=== PATIENT | female | born 1945 | race Caucasian/White ===

== ENCOUNTER → 2019-11-19 10:16 | Outpatient (CLI) | payer MEDICARE, OTHER, SELFPAY ==
--- NOTE | ~2019-11-19 | XR_ITS ---
XR ankle RT 2V DATE: 11/19/2019 10:47 INDICATION: Right ankle and foot pain TECHNIQUE: AP and lateral views COMPARISON: 08/12/2017 right foot FINDINGS: Moderate plantar calcaneal enthesopathy without periostitis or erosive change. There is mil d distal Achilles tendon calcification. There is mild tibiotalar osteoarthritis. No fracture or dislocation of the ankle or disruption of the ankle mortise is detected. IMPRESSION: Moderate plantar calcaneal enthesopathy; mild distal Achilles tendon calcification Mild osteoarthritis at the tibiotalar joint Reviewed, dictated and finalized at location B. IMPRESSION: Moderate plantar calcaneal enthesopathy; mild distal Achilles tendo n calcification Mild osteoarthritis at the tibiotalar joint
--- NOTE | ~2019-11-19 | XR_ITS ---
XR foot RT 2V DATE: 11/19/2019 10:47 INDICATION: Right ankle and foot pain TECHNIQUE: AP and lateral views COMPARISON: None FINDINGS: There is mild osteoarthritis at the tibiotalar joint and first metatarsophalangeal joint. T here is mild osteoarthritic change of the tarsal joints. There is moderate plantar calcaneal enthesopathy and mild calcification of the distal Achilles tendon . No fracture or dislocation, periosteal reaction or bone destruction. IMPRESSION: Polyarticular osteoarthritis Plantar calcaneal enthesopathy and mild distal Achilles tendon calcification Reviewed, dictated and finalized at location B.
== END ==
PROVIDERS: PCP Family Medicine; Visit Provider Family Medicine
DX: M25.571 Pain in right ankle and joints of right foot (principal); M79.671 Pain in right foot; M19.071 Primary osteoarthritis, right ankle and foot; M77.31 Calcaneal spur, right foot
CPT/HCPCS: 73600; 73620

== ENCOUNTER 2019-11-26 10:35 | Outpatient (CLI) | payer MEDICARE, OTHER, SELFPAY ==
--- NOTE | ~2019-11-26 | US_ITS ---
EXAMINATION: US venous doppler LE RT DATE: 11/26/2019 11:21 INDICATION: Right lower limb swelling and pain TECHNIQUE: Saez scale images without and with compression and Doppler images of the right lower extre mity veins were obtained. COMPARISON: None FINDINGS: The right common femoral vein, profunda femoral vein, femoral vein, popliteal vein, peronea l trunk, posterior tibial veins, and greater saphenous vein are patent. Right lower limb edema is not ed. IMPRESSION: 1. Patent right lower extremity veins. No evidence of deep venous thrombosis. Reviewed, dictated and finalized at location B.
== END 2019-11-26 10:36 | disposition home or self-care (01) ==
LOC: ANHIMG 10:38
PROVIDERS: PCP Family Medicine; Visit Provider Family Medicine
DX: M79.661 Pain in right lower leg (principal)
CPT/HCPCS: 93971

== ENCOUNTER 2020-04-05 09:30 | Outpatient (RCR) | payer MEDICARE, OTHER, SELFPAY ==
--- NOTE | 2020-03-08 10:20 | PTOPEVAL ---
PHYSICAL THERAPY EVALUATION AND PLAN OF CARE 03-08-2020 Thank you for referring Sarah Giraldo to [facility].? She is scheduled to be seen for therapy? 2 x/week for 4 weeks. Please review, sign, date and return this plan of care ISABELLA. I agree with and certify that the following plan of care is medically necessary. Referring Physician Date Attending Provider: Raz Guevara MD *PT Outpatient Evaluation Document 03/08/20 09:11 TANIA (Rec: 03/08/20 10:20 TANIA [id number]) Outpatient Past Medical History Past Medical History Source of Past Medical History Patient Neurological History Hx Neurological Disorders No Significant History Cardiovascular History Hx Cardiac Disorders No Significant History Respiratory History Hx Respiratory Disorders No Significant History Gastrointestinal History Hx Cholecystectomy Yes Genitourinary History Hx Genitourinary Disorders No Significant History Musculoskeletal History Hx Back Pain Yes: chronic back pain Hx Orthopedic Surgery Yes: B rot cuff surgery; R trigger finder surgery; L elbow surgery;L hand surger Hx Other Musculoskeletal Disorders Yes: 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; B UE neuropathy Endocrine History Hx Diabetes Yes Hx Hypothyroidism Yes: on meds Hx Other Endocrine Disorders Yes: Hoshimoto HEENT History Hx HEENT Disorders No Significant History Integumentary History Hx Skin Disorders No Significant History Reproductive History Hx Hysterectomy Yes Other History Hx Cancer Yes: skin cancer pre cancer cells- arms,nose,neck Hx Other Medical Conditions Yes: [place]- new treatment for neuropathy L LE-inject& stim machine-helps Evaluation Information Problem Diagnosis R ankle, calf and leg swelling Onset October 2019 Subjective Information increase problems R LE when Query Text:As Reported By Patient/ getting out of car, tore Family muscle behind knee; had therapy for R knee- massage, exercises and now finished with knee; Diagnostic Tests X-Rays For This Problem Yes: ankle, knee negative Other Tests For This Problem Yes: US negative for DVT Prior Level of Function Activity Level (Last 3 Months) Occupation retired Activity of Daily Living Ability Independent Home Setting Home Type House,Multiple Levels Environmental Barriers Stairs, 2-4 Living Situation With Spouse Mobility Assistive Devices (Used Last 3 Walker, Whe
--- NOTE | 2020-03-27 11:43 | PCPTNOTE ---
Patient called & cancelled scheduled appointment this date due to not feeling well
--- NOTE | 2020-04-03 11:15 | PCPTNOTE ---
Had legal secretary call pt to see if Sarah could come in early due to a pt cancelation . Sarah stated she could not come in early, but would be here at 10:45. Pt no showed for appointment.
--- NOTE | 2020-04-05 16:16 | PTOPEVAL ---
PHYSICAL THERAPY DISCHARGE 04-05-2020 Refer to the clinical summary below for her status compared to the initial evaluation. The goals were achieved. She is discharged from PT at this time, and is to continue at home with her LE exercises, compression knee high garment, self manual lymph drainage. A home intermittent compression unit has been submitted to the insurance, through [employer] and awaiting authorization for her to receive for home use, to manage her chronic lymphedema. Thank you for referring Sarah Giraldo to [facility].? Please review, sign, date and return this plan of care ISABELLA. I agree with and certify that the following plan of care is medically necessary. Referring Physician Date Attending Provider: Raz Guevara MD *PT Outpatient Discharge Document 04/05/20 09:10 TANIA (Rec: 04/05/20 10:08 TANIA [id number]) Subjective Information Sarah reports: saw Dr Guevara Query Text:As Reported By Patient/ yesterday and he told her that Family she should be done with PT and to follow up with him next month if still has R ankle/ foot pain; R ankle is smaller than it has been in a long time; intermittent compression helped her legs--L LE neuropathy less after she has the pump; feels like she and her can handle the garment, self massage and care for her leg; agrees to discharge from PT; Pain Assessment Timing of Pain Assessment Timing of Pain Assessment Assessment Pain Scale Pain Scale Used Numeric (1 - 10) Self Report Pain Assessment Right Foot/Feet Reported Pain Level 5 Pain Description Sharp Pain Frequency Chronic Other Pain Description base of 3-4-5 toes to lateral- distal foot;tender to touch over 5 toe ext te Lowest Pain Intensity 0 Greatest Pain Intensity 9 Pain Score Pain Score 5: Self Report Interventions Used Interventions Used By Clinicians Education Lower Extremity Range of Motion General Lower Extremity Range of Motion Gross Lower Extremity Range of Motion sitting active B knee flexion Comments 75'; Modalities Intermittent Compression Pump Bilateral Lower Extremity Patient Position Sitting Intensity Setting 40 Query Text:(0 - 45 mmHg) Treatment Duration 10 Query Text:(0 - 60 Minutes) Reason For Treatment Edema Response to Treatment for Contributing Reduce Edema to Therapeutic Activity
== END 2020-04-06 08:41 | disposition home or self-care (01) ==
LOC: ANHPT 09:30
PROVIDERS: PCP Family Medicine; Visit Provider Orthopaedic Surgery
DX: M79.89 Other specified soft tissue disorders (principal)
CPT/HCPCS: 29581; 97016; 97140; 97161

== ENCOUNTER 2021-06-25 09:35 | Outpatient (CLI) | payer MEDICARE, OTHER, SELFPAY ==
[2021-06-25 10:01] LABS: Hematocrit 46.4 % (37.0-47.0); Mean Corpuscular HGB Conc 32.3 g/dl (32-36); Mean Corpuscular Hemoglobin 29.5 pg (26-34); Mean Corpuscular Volume 91.2 fl (80-100); Mean Platelet Volume 9.4 fl (7.4-10.4); Platelet Count Result 222 k/mm3 (150-375); Red Blood Count 5.09 M/mm3 (4.2-5.4); Red Cell Distribution Width 13.2 % (11.5-14.5)
[2021-06-25 10:17] LABS: Alanine Aminotransferase 20 U/L (4-35); Albumin Level 3.7 g/dL (3.5-5.1); Alkaline Phosphatase 103 U/L (38-126); Anion Gap 6 mmol/L (8-16); Aspartate Amino Transferase 28 U/L (14-36); Bilirubin,Total 0.4 mg/dL (0.2-1.3); Blood Urea Nitrogen 17 mg/dL (7-17); Calcium 8.7 mg/dL (8.4-10.2); Carbon Dioxide 30 mmol/L (22-30); Chloride 103 mmol/L (98-107); Estimated Glomerular Filt Rate 54; Glucose 161 mg/dL (65-110); Potassium 3.9 mmol/L (3.4-5.0); Sodium 139 mmol/L (137-145)
[2021-06-25 10:40] LABS: Hemoglobin A1C 9.9 % (<5.7)
[2021-06-25 10:51] LABS: Free T4 Free Thyroxine 2.02 ng/mL (0.78-2.19)
== END 2021-06-25 09:36 | disposition home or self-care (01) ==
PROVIDERS: PCP Family Medicine; Visit Provider Physician Assistant
DX: D64.9 Anemia, unspecified (principal); E11.9 Type 2 diabetes mellitus without complications; I10 Essential (primary) hypertension; Z13.1 Encounter for screening for diabetes mellitus; E03.9 Hypothyroidism, unspecified; R53.83 Other fatigue
CPT/HCPCS: 36415; 80053; 83036; 84439; 84443; 85027

== ENCOUNTER 2021-07-13 14:04 | Outpatient (CLI) | payer MEDICARE, OTHER, SELFPAY ==
--- NOTE | ~2021-07-13 | US_ITS ---
EXAMINATION: US art doppler w press LE BI DATE: 07/13/2021 15:21 INDICATION: Peripheral vascular disease with foot ulcer TECHNIQUE: Segmental pressures and plethysmographic and Doppler waveforms of the brachial and lower e xtremity arteries were obtained. COMPARISON: None. FINDINGS: Right and left brachial artery pressures of 89 mm Hg and 132 mm Hg, respectively, are discordant (nor mal difference <= 30 mmHg). The right and left high-thigh pressure indices were unable to be obtained due to inability to tolerate pressure measurements throughout the right thigh and in the left thigh and [id number] popliteal artery. The right ankle-brachial index (YANNA) is 1.14 (normal >= 0.9-1). The right great toe-brachial index (T BI) is 0.94 (normal >= 0.6-0.8). The right lower extremity segmental pressure gradients in the right calf are normal (normal gradients <= 20-30 mmHg between adjacent levels on the same leg or the same l evels on the two legs). Arterial waveforms are biphasic with brisk systolic upstrokes throughout the arteries of the right lower limb. The left YANNA is 1.23. The left TBI is 0.70. The left lower extremity segmental pressure in the left c shelter gradients are normal. Arterial waveforms are biphasic with brisk systolic upstrokes throughout th e arteries of the left lower limb. IMPRESSION: 1. Normal YANNA's and TBI's bilaterally. No significant occlusive disease. 2. Discordant brachial artery pressures suggesting hemodynamically significant stenosis proximal to t he right brachial artery. Consider CT angiogram of the arteries arising from the aortic arch. Reviewed, dictated and finalized at location A. IMPRESSION: 1. Normal YANNA's and TBI's bilaterally. No significant occlusive disease. 2. Discordant brachial artery pressures suggesting hemodynamically significant stenosis proximal to the right brachial artery. Consider CT angiogram of the ar teries arising from the aortic arch.
== END 2021-07-13 14:05 | disposition home or self-care (01) ==
LOC: ANHIMG 14:06
PROVIDERS: PCP Family Medicine; Visit Provider Podiatrist Foot & Ankle Surgery
DX: E11.621 Type 2 diabetes mellitus with foot ulcer (principal); I73.9 Peripheral vascular disease, unspecified
CPT/HCPCS: 93923

== ENCOUNTER 2022-01-01 08:55 | Outpatient (CLI) | payer MEDICARE, OTHER, SELFPAY ==
[2022-01-01 10:05] LABS: Alanine Aminotransferase 17 U/L (6-35); Albumin Level 3.8 g/dL (3.5-5.1); Alkaline Phosphatase 92 U/L (38-126); Anion Gap 14 mmol/L (8-16); Aspartate Amino Transferase 25 U/L (14-36); Bilirubin,Total 0.4 mg/dL (0.2-1.3); Blood Urea Nitrogen 16 mg/dL (7-17); Calcium 8.8 mg/dL (8.4-10.2); Carbon Dioxide 29 mmol/L (22-30); Chloride 96 mmol/L (98-107); Cholesterol 170 mg/dL (0-200); Estimated Glomerular Filt Rate > 60; Glucose 166 mg/dL (65-110); HDL Direct 34 mg/dL; Potassium 3.9 mmol/L (3.4-5.0); Sodium 139 mmol/L (137-145); Triglycerides 147 mg/dL (<150)
[2022-01-01 10:16] LABS: LDL Cholesterol Direct 99 mg/dL
[2022-01-01 10:26] LABS: Hemoglobin A1C 7.3 % (<5.7)
[2022-01-01 11:08] LABS: Vitamin D 25 Hydroxy 39.5 ng/mL
[2022-01-01 11:52] LABS: Free T4 Free Thyroxine Reflex 1.89 ng/dL (0.78-2.19)
[2022-01-01 12:50] LABS: Total Triiodothyronine (T3) 1.15 NG/ML (0.97-1.69)
== END 2022-01-01 08:56 | disposition home or self-care (01) ==
LOC: ANHLAB 09:08
PROVIDERS: PCP Family Medicine; Visit Provider Family Medicine
DX: E55.9 Vitamin D deficiency, unspecified (principal); E78.2 Mixed hyperlipidemia; E03.9 Hypothyroidism, unspecified; E11.9 Type 2 diabetes mellitus without complications
CPT/HCPCS: 36415; 80053; 80061; 82306; 83036; 84439; 84443; 84480

== ENCOUNTER 2022-12-16 14:29 | Outpatient (CLI) | payer MEDICARE, OTHER, SELFPAY ==
--- NOTE | ~2022-12-16 | US_ITS ---
EXAMINATION: US venous doppler [facility] DATE: 12/16/2022 15:08 INDICATION: Lower limb swelling TECHNIQUE: Grayscale ultrasound images without and with compression and Doppler ultrasound images of the bilateral lower extremity veins were obtained. COMPARISON: None. FINDINGS: The visualized portions of right common femoral vein, profunda (deep) femoral vein, femoral vein, pop liteal vein, posterior tibial veins, gastrocnemius vein and greater saphenous vein outflow are patent . The visualized portions of left common femoral vein, profunda femoral vein, femoral vein, popliteal v ein, gastrocnemius vein and greater saphenous vein outflow are patent. IMPRESSION: 1. No deep venous thrombosis in either lower limb. Reviewed, dictated and finalized at location A.
== END 2022-12-16 14:30 | disposition home or self-care (01) ==
LOC: ANHIMG 14:33
PROVIDERS: PCP Family Medicine; Visit Provider Family Medicine
DX: R60.0 Localized edema (principal)
CPT/HCPCS: 93970

== ENCOUNTER 2023-01-06 10:21 | Outpatient (CLI) | payer MEDICARE, OTHER, SELFPAY ==
[2023-01-06 11:55] LABS: Basophils Absolute Auto 0.1 K/mm3 (0.0-0.1); Basophils Percent Auto 1.5 % (0.2-1.2); Eosinophils Absolute Auto 0.1 K/mm3 (0-0.3); Eosinophils Percent Auto 2.4 % (0-4.4); Hematocrit 46.3 % (37.0-47.0); Hemoglobin 14.8 g/dL (12.0-15.0); Immature Granulocyte Absolute 0.02 K/mm3 (0.00-0.031); Immature Granulocyte Percent A 0.3 % (0-0.5); Lymphocytes Percent Auto 41.2 % (18.3-44.2); Mean Corpuscular Hemoglobin 29.1 pg (26-34); Mean Corpuscular Volume 91.1 fl (80-100); Mean Platelet Volume 10.1 fl (7.4-10.4); Monocytes Absolute Auto 0.4 K/mm3 (0.1-0.6); Monocytes Percent Auto 7.2 % (2.6-8.5); Neutrophils Absolute Auto 2.8 K/mm3 (1.3-6.7); Neutrophils Percent Auto 47.4 % (45.5-73.1); Platelet Count Result 208 k/mm3 (150-375); Red Blood Count 5.08 M/mm3 (4.2-5.4); Red Cell Distribution Width 13.5 % (11.5-14.5); White Blood Count 5.8 K/mm3 (4.5-10.0)
[2023-01-06 12:03] LABS: Appearance Urine Clear (Clear); Bacteria Urine 2+ /hpf; Bilirubin Urine Negative (Negative); Blood Urine Negative (Negative); Color Urine Yellow (Yellow); Glucose Urine UA Negative (Negative); Ketones Urine Negative (Negative); Leukocyte Esterase Ur Trace LEU/UL (Negative); Nitrate Urine Negative (Negative); Non Pathogenic Casts 0-2; Protein Urine Negative (Negative); RBC Urine 0-2 /hpf (0-2); Specific Grav Ur 1.023 (1.001-1.035); Squamous Epithelial Cell Urine Moderate /hpf (Few); pH Urine 6.5 (5.0-9.0)
[2023-01-06 12:09] LABS: Add Urine Microscopic? YES
[2023-01-06 12:13] LABS: Alanine Aminotransferase 21 U/L (6-35); Albumin Level 3.8 g/dL (3.5-5.1); Alkaline Phosphatase 104 U/L (38-126); Anion Gap 6 mmol/L (8-16); Aspartate Amino Transferase 31 U/L (14-36); Bilirubin,Total 0.5 mg/dL (0.2-1.3); Blood Urea Nitrogen 20 mg/dL (7-17); Calcium 9.4 mg/dL (8.4-10.2); Carbon Dioxide 33 mmol/L (22-30); Chloride 98 mmol/L (98-107); Estimated Glomerular Filt Rate 60; Glucose 186 mg/dL (65-110); Sodium 137 mmol/L (137-145)
[2023-01-06 12:22] LABS: NT Pro B Type Natriuretic Pept 90 pg/mL (19.9-100)
[2023-01-06 12:45] LABS: Thyroid Stimulating Hormone Reflex 0.209 uIU/mL (0.465-4.68)
[2023-01-06 14:16] LABS: Free T4 Free Thyroxine Reflex 2.82 ng/dL (0.78-2.19)
== END 2023-01-06 10:22 | disposition home or self-care (01) ==
PROVIDERS: PCP Family Medicine; Visit Provider Family Medicine
DX: N18.9 Chronic kidney disease, unspecified (principal); E11.9 Type 2 diabetes mellitus without complications; E03.9 Hypothyroidism, unspecified; R53.83 Other fatigue; R60.9 Edema, unspecified; I50.9 Heart failure, unspecified
CPT/HCPCS: 36415; 80053; 81001; 83880; 84439; 84443; 85025; 87077; 87086; 87186

== ENCOUNTER 2023-01-14 07:12 | Outpatient (RCR) | payer MEDICARE, OTHER, SELFPAY ==
[2022-12-31 10:25] VITALS: BMI 47.8
== END 2023-01-30 13:29 | disposition home or self-care (01) ==
LOC: ANHWOC 07:12
PROVIDERS: PCP Family Medicine; Visit Provider Family Medicine
DX: I83.009 Varicose veins of unspecified lower extremity with ulcer of unspecified site (principal); L97.909 Non-pressure chronic ulcer of unspecified part of unspecified lower leg with unspecified severity; E08.40 Diabetes mellitus due to underlying condition with diabetic neuropathy, unspecified
CPT/HCPCS: 99212; 99213; G0463

== ENCOUNTER 2023-01-21 07:19 | Outpatient (CLI) | payer MEDICARE, OTHER, SELFPAY ==
--- NOTE | 2023-01-21 08:00 | ECHO_ITS ---
Patient Info Name: Sarah Giraldo Age: 77 years : 1945 Gender: Female Ht: 60 in Wt: 247 lbs BSA: 2.25 m2 HR: 61 bpm BP: 176 / 90 mmHg Technical Quality: Fair Exam Date: 01/21/2023 8:11 AM Exam Location: [facility] Patient Status: Outpatient Admit Date: 01/21/2023 Staff Ordering Physician: Jocy Moon MD [employer] Shift Manager: Irma Fink RDCS Attending Provider: Jocy Moon MD Referring Physician: Red LUGO; Exam Type: CA echo doppler color flow Study Info Indications R06.00 - Dyspnea, unspecified Complete two-dimensional, color flow and Doppler transthoracic echocardiogram is performed. Summary 1. Complete two-dimensional, color flow and Doppler transthoracic echocardiogram is performed. 2. Left ventricular chamber dimension is normal. 3. Left ventricular systolic function is normal, estimated at 60-65%. 4. There is mild concentric increased left ventricular wall thickness. 5. The left ventricular diastolic function is grade I diastolic dysfunction. 6. E/e' 8 is minimally elevated. 7. Left atrial chamber dimension is mildly enlarged. 8. There is mild aortic valve sclerosis. 9. No pulmonary hypertension, estimated pulmonary arterial systolic pressure is 26 mmHg. Left Ventricle E/e' 8 is minimally elevated. Left ventricular chamber dimension is normal. Left ventricular systolic function is normal, estimated at 60-65%. There is mild concentric increased left ventricular wall thickness. The left ventricular diastolic function is grade I diastolic dysfunction. Right Ventricle Right ventricular systolic function is normal and with normal TAPSE 2.5 cm. Right ventricular chamber dimension is normal. Left Atria Left atrial chamber dimension is mildly enlarged. Right Atria Right atrial chamber dimension is normal. Aortic Valve The aortic valve is trileaflet. There is mild aortic valve sclerosis. There is no aortic valve stenosis. There is no aortic valve regurgitation. Pulmonic Valve There is no pulmonic regurgitation. Mitral Valve There is no mitral valve stenosis. There is no mitral valve regurgitation. Tricuspid Valve There is no tricuspid valve regurgitation. No pulmonary hypertension, estimated pulmonary arterial systolic pressure is 26 mmHg. Pericardium/Pleural There is no pericardial effusion. Inferior Vena Cava Normal inferior vena cava with >50% collapse upon inspiration consistent with normal right atrial pressure, 5 mmHg. Aorta The aortic root size at the sinus of Valsalva is normal. Left Ventricular Outflow Tract Name Value Normal LVOT 2D LVOT Diameter 1.9 cm LVOT Doppler LVOT Peak Gradient 4 mmHg LVOT Mean Gradient 2 mmHg LVOT VTI 23 cm LVOT VTI/AV VTI Ratio 0.8 LVOT Stroke Volume 64 ml LVOT CO 4.1 l/min LVOT CI 1.8 l/min/m2 Pulmonic Valve Name Value Normal R
== END 2023-01-21 07:20 | disposition home or self-care (01) ==
LOC: ANHCARD 07:19
PROVIDERS: PCP Family Medicine; Visit Provider Family Medicine
DX: R06.00 Dyspnea, unspecified (principal); R60.9 Edema, unspecified; I51.7 Cardiomegaly; R93.1 Abnormal findings on diagnostic imaging of heart and coronary circulation; I35.8 Other nonrheumatic aortic valve disorders
CPT/HCPCS: 93306

== ENCOUNTER 2023-06-10 07:35 | Outpatient (RCR) | payer MEDICARE, OTHER, SELFPAY ==
[2023-05-09 10:00] VITALS: BMI 48.9
== END 2023-08-07 23:59 | disposition home or self-care (01) ==
LOC: ANHWOC 07:35
PROVIDERS: PCP Family Medicine; Visit Provider Family Medicine
DX: L97.909 Non-pressure chronic ulcer of unspecified part of unspecified lower leg with unspecified severity (principal)
CPT/HCPCS: 29581; 99213; A9270; G0463

== ENCOUNTER 2023-06-21 08:38 | Outpatient (CLI) | payer MEDICARE, OTHER, SELFPAY ==
[2023-06-21 09:02] LABS: Basophils Absolute Auto 0.1 K/mm3 (0.0-0.1); Basophils Percent Auto 1.3 % (0.2-1.2); Eosinophils Absolute Auto 0.2 K/mm3 (0-0.3); Hematocrit 43.5 % (37.0-47.0); Immature Granulocyte Absolute 0.02 K/mm3 (0.00-0.031); Immature Granulocyte Percent A 0.3 % (0-0.5); Lymphocytes Absolute Auto 1.68 K/mm3 (0.9-3.2); Lymphocytes Percent Auto 27.9 % (18.3-44.2); Mean Corpuscular HGB Conc 32.2 g/dl (32-36); Mean Corpuscular Hemoglobin 28.9 pg (26-34); Mean Corpuscular Volume 89.7 fl (80-100); Mean Platelet Volume 9.4 fl (7.4-10.4); Monocytes Absolute Auto 0.6 K/mm3 (0.1-0.6); Monocytes Percent Auto 9.5 % (2.6-8.5); Neutrophils Absolute Auto 3.5 K/mm3 (1.3-6.7); Platelet Count Result 214 k/mm3 (150-375); Red Blood Count 4.85 M/mm3 (4.2-5.4); Red Cell Distribution Width 13.2 % (11.5-14.5)
[2023-06-21 09:56] LABS: Alanine Aminotransferase 14 U/L (6-35); Albumin Level 3.4 g/dL (3.5-5.1); Alkaline Phosphatase 100 U/L (38-126); Anion Gap 4 mmol/L (8-16); Aspartate Amino Transferase 24 U/L (14-36); Bilirubin,Total 0.5 mg/dL (0.2-1.3); Blood Urea Nitrogen 15 mg/dL (7-17); Calcium 9.2 mg/dL (8.4-10.2); Carbon Dioxide 29 mmol/L (22-30); Chloride 101 mmol/L (98-107); Cholesterol 153 mg/dL (0-200); Estimated Glomerular Filt Rate > 60; Glucose 159 mg/dL (65-110); HDL Direct 39 mg/dL; Potassium 3.9 mmol/L (3.4-5.0); Sodium 134 mmol/L (137-145); Triglycerides 124 mg/dL (<150)
[2023-06-21 10:12] LABS: LDL Cholesterol Direct 89 mg/dL
[2023-06-21 10:43] LABS: Vitamin D 25 Hydroxy 41.1 ng/mL
== END 2023-06-21 08:39 | disposition home or self-care (01) ==
LOC: ANHLAB 08:40
PROVIDERS: PCP Family Medicine; Visit Provider Physician Assistant
DX: E55.9 Vitamin D deficiency, unspecified (principal); R53.83 Other fatigue; E11.9 Type 2 diabetes mellitus without complications; E53.8 Deficiency of other specified B group vitamins; E78.2 Mixed hyperlipidemia
CPT/HCPCS: 36415; 80053; 80061; 82306; 82607; 85025

== ENCOUNTER 2023-10-28 13:02 | Outpatient (CLI) | payer MEDICARE, OTHER, SELFPAY ==
--- NOTE | 2023-10-28 14:45 | NEURO_ITS ---
Impression: # Insulin dependent diabetic complains of increasing numbness of hands. # Borderline neuropathy. 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 # Normal needle/EMG exam. Nerve Conduction Studies Anti Sensory Summary Table Stim Site NR Peak (ms) P-T Amp (?V) Site1 Site2 Delta-P (ms) Dist (cm) Efrain (m/s) Left Median Anti Sensory (2-3nd Digit) Wrist 4.8 4.0 Wrist 2-3nd Digit 4.8 14.0 29 Wrist 5.2 5.3 Wrist 2-3nd Digit 4.8 14.0 29 Right Median Anti Sensory (2-3nd Digit) Wrist 3.8 9.5 Wrist 2-3nd Digit 3.8 14.0 37 Wrist 4.2 19.2 Wrist 2-3nd Digit 3.8 14.0 37 Left Radial Anti Sensory (Base 1st Digit) Wrist 2.0 12.4 Wrist Base 1st Digit 2.0 0.0 Right Radial Anti Sensory (Base 1st Digit) Wrist 2.7 10.2 Wrist Base 1st Digit 2.7 0.0 Left Ulnar Anti Sensory (5th Digit) Wrist 3.3 6.3 Wrist 5th Digit 3.3 14.0 42 Right Ulnar Anti Sensory (5th Digit) Wrist 3.2 29.0 Wrist 5th Digit 3.2 14.0 44 Motor Summary Table Stim Site NR Onset (ms) O-P Amp (mV) Site1 Site2 Delta-0 (ms) Dist (cm) Efrain (m/s) Left Median Motor (Abd Poll Brev) Wrist 4.4 1.3 Elbow Wrist 5.5 26.0 47 Elbow 9.9 1.3 Right Median Motor (Abd Poll Brev) Wrist 4.6 0.7 Elbow Wrist 6.3 28.0 44 Elbow 10.9 1.3 Left Ulnar Motor (Abd Dig Minimi) Wrist 3.2 7.4 A Elbow Wrist 7.2 27.0 38 A Elbow 10.4 2.6 B Elbow Wrist 4.8 22.0 46 B Elbow 8.0 3.2 Right Ulnar Motor (Abd Dig Minimi) Wrist 3.4 5.8 A Elbow Wrist 5.6 27.0 48 A Elbow 9.0 3.7 F Wave Studies NR F-Lat (ms) L-R F-Lat (ms) Left Median (Mrkrs) (Abd Poll Brev) 28.93 1.11 Right Median (Mrkrs) (Abd Poll Brev) 30.04 1.11 Left Ulnar (Mrkrs) (Abd Dig Min) 30.81 0.18 Right Ulnar (Mrkrs) (Abd Dig Min) 30.63 0.18 EMG Side Muscle Nerve Root Ins Act Fibs Amp Dur Recrt Comment Right 1stDorInt Ulnar C8-T1 Nml Nml Nml Nml Nml Right Ext Indicis Radial (Post Int) C7-8 Nml Nml Nml Nml Nml Right Ext Digitorum Radial (Post Int) C7-8 Nml Nml Nml Nml Nml Right BrachioRad Radial C5-6 Nml Nml Nml Nml Nml Right PronatorTeres Median C6-7 Nml Nml Nml Nml Nml Right Abd Poll Brev Median C8-T1 Nml Nml Nml Nml Nml Right ABD Dig Min Ulnar C8-T1 Nml Nml Nml Nml Nml Left 1stDorInt Ulnar C8-T1 Nml Nml Nml Nml Nml Left Ext Indicis Radial (Post Int) C7-8 Nml Nml Nml Nml Nml Left Ext Digitorum Radial (Post Int) C7-8 Nml Nml Nml Nml Nml Left BrachioRad Radial C5-6 Nml Nml Nml Nml Nml Left PronatorTeres Median C6-7 Nml Nml Nml Nml Nml Left Abd Poll Brev Median C8-T1 Nml Nml Nml Nml Nml Left ABD Dig Min Ulnar C8-T1 Nml Nml Nml Nml Nml MTDD
== END 2023-10-28 13:03 | disposition home or self-care (01) ==
LOC: ANHNEURO 13:02
PROVIDERS: PCP Family Medicine; Visit Provider Plastic Surgery
DX: G56.03 Carpal tunnel syndrome, bilateral upper limbs (principal); E11.9 Type 2 diabetes mellitus without complications; Z79.4 Long term (current) use of insulin
CPT/HCPCS: 95886; 95911

== ENCOUNTER 2024-01-19 09:30 | Outpatient (CLI) | payer MEDICARE, OTHER, SELFPAY ==
[2024-01-19 09:53] LABS: Basophils Absolute Auto 0.1 K/mm3 (0.0-0.1); Basophils Percent Auto 1.2 % (0.2-1.2); Eosinophils Absolute Auto 0.3 K/mm3 (0-0.3); Eosinophils Percent Auto 4.8 % (0-4.4); Hematocrit 45.7 % (37.0-47.0); Hemoglobin 14.8 g/dL (12.0-15.0); Immature Granulocyte Absolute 0.03 K/mm3 (0.00-0.031); Immature Granulocyte Percent A 0.5 % (0-0.5); Lymphocytes Absolute Auto 2.35 K/mm3 (0.9-3.2); Lymphocytes Percent Auto 36.3 % (18.3-44.2); Mean Corpuscular HGB Conc 32.4 g/dl (32-36); Mean Corpuscular Hemoglobin 29.2 pg (26-34); Mean Corpuscular Volume 90.3 fl (80-100); Mean Platelet Volume 9.2 fl (7.4-10.4); Monocytes Absolute Auto 0.6 K/mm3 (0.1-0.6); Monocytes Percent Auto 9.9 % (2.6-8.5); Neutrophils Absolute Auto 3.1 K/mm3 (1.3-6.7); Neutrophils Percent Auto 47.3 % (45.5-73.1); Platelet Count Result 202 k/mm3 (150-375); Red Blood Count 5.06 M/mm3 (4.2-5.4); Red Cell Distribution Width 13.9 % (11.5-14.5); White Blood Count 6.5 K/mm3 (4.5-10.0)
[2024-01-19 10:05] LABS: Alanine Aminotransferase 14 U/L (6-35); Albumin Level 3.9 g/dL (3.5-5.1); Alkaline Phosphatase 99 U/L (38-126); Anion Gap 4 mmol/L (4-12); Aspartate Amino Transferase 26 U/L (14-36); Bilirubin,Total 0.5 mg/dL (0.2-1.3); Blood Urea Nitrogen 15 mg/dL (7-17); Calcium 9.1 mg/dL (8.4-10.2); Carbon Dioxide 33 mmol/L (22-30); Chloride 99 mmol/L (98-107); Cholesterol 181 mg/dL (0-200); Estimated Glomerular Filt Rate > 60; Glucose 132 mg/dL (65-110); HDL Direct 49 mg/dL; Potassium 4.2 mmol/L (3.4-5.0); Sodium 136 mmol/L (137-145); Triglycerides 122 mg/dL (<150)
[2024-01-19 10:15] LABS: LDL Cholesterol Direct 98 mg/dL
[2024-01-19 10:21] LABS: Hemoglobin A1C 7.9 % (<5.7)
[2024-01-19 10:23] LABS: Iron 139 ug/dL (37-170)
[2024-01-19 10:33] LABS: Percent Iron Saturation 36 % (20-50)
[2024-01-19 10:55] LABS: Thyroid Stimulating Hormone Reflex < 0.015 uIU/mL (0.465-4.68)
[2024-01-19 16:35] LABS: Free T4 Free Thyroxine Reflex 1.79 ng/dL (0.78-2.19)
[2024-01-19 17:30] LABS: Total Triiodothyronine (T3) 1.19 NG/ML (0.97-1.69)
== END 2024-01-19 09:31 | disposition home or self-care (01) ==
PROVIDERS: PCP Family Medicine; Visit Provider Family Medicine
DX: E53.8 Deficiency of other specified B group vitamins (principal); I12.9 Hypertensive chronic kidney disease with stage 1 through stage 4 chronic kidney disease, or unspecified chronic kidney disease; E08.40 Diabetes mellitus due to underlying condition with diabetic neuropathy, unspecified; N18.30 Chronic kidney disease, stage 3 unspecified; E03.9 Hypothyroidism, unspecified; R53.83 Other fatigue; E61.1 Iron deficiency
CPT/HCPCS: 36415; 80053; 80061; 82607; 82728; 83036; 83540; 83550; 84439; 84443; 84480; 85025

== ENCOUNTER 2024-09-28 11:30 | Outpatient (CLI) | payer MEDICARE, OTHER, SELFPAY ==
--- OUTSIDE RECORDS SUMMARY | 2024-09-28 11:39 | XMS_ITS | Continuity of Care Document ---
Author Name [facility] Organization [facility] Care Team Providers Care Platen Grinder Name Role Phone [facility] Unavailable Unavailable Problems Combined list of problems from Department of Defense and Veterans Affairs facilities. It does not include entries that were removed or entered in error. Problem Status Onset Date Problem Type Date of Resolution Comments Source Vaccines Prophylactic Need Against Influenza Inactive Condition [facility] Medications Combined list of outpatient medications from Department of Defense and Veterans [facility] facilities.Medications provided include 1) outpatient medications from the last 15 months, and 2) patient-reported medications. Medication Details Route Status Patient Instructions Prescription Expires Prescription Number Last Dispense Date Ordering Provider Order Date Order Qty Source INSULIN ASPART PROT MIX 70-30 (insulin aspart protamine human/insul in aspart), 70-30/ML, INSULN PEN, SUBCUT, TRACEY NORDISK, 3 ml SYRINGE Cancele d [id number] : 2023 0 Pharmac y Data Transac tion Service Facilit y LEVOTHYROXI NE SODIUM (levothyrox ine sodium), 175 MCG, TABLET, ORAL, [employer], 90 ea. BOTTLE Cancele d [id number] : 2023 0 Pharmac y Data Transac tion Service Facilit y LEVOTHYROXI NE SODIUM (levothyrox ine sodium), 175 MCG, TABLET, ORAL, [employer], 90 ea. BOTTLE Active [id number] 4 2023 90 Pharmac y Data Transac tion Service Facilit y MOUNJARO (tirzepatid e), 2.5 MG/0.5, PEN INJCTR, SUBCUT, [employer] .5 ml SYRINGE Active [id number] 4 2023 6 Pharmac y Data Transac tion Service Facilit y NOVOLOG MIX 70-30 (INSULN ASP PRT/INSULIN ASPART), 70-30 U/ML, INSULN PEN, SUB-Q, TRACEY NORDISK, 3 ml SYRINGE Active [id number] 4 2023 90 Pharmac y Data Transac tion Service Facilit y POTASSIUM CHLORIDE (potassium chloride), 10 MEQ, CAPSULE ER, ORAL, [employer], 100 ea. BOTTLE Active [id number] 4 2023 38 Pharmac y Data Transac tion Service Facilit y PREGABALIN (pregabalin ), 75 MG, CAPSULE, ORAL, [employer], 90 ea. BOTTLE Active [id number] 4 2023 270 Pharmac y Data Transac tion Service Facilit y PREGABALIN (pregabalin ), 75 MG, CAPSULE, ORAL, [employer], 90 ea. BOTTLE Active [id number] 4 2023 270 Pharmac y Data Transac tion Service Facilit y SHINGRIX (varicella- zoster virus glycoprotei n E,rec/AS01B adjuvant/PF ), 50 MCG/0.5, KIT, INTRAMUSC, Refinder by [facility], 1 ea. KIT Active [id number] 4 2023 1 Pharmac y Data Transac tion Service Facilit y SURE COMFORT PEN NEEDLE (pen needle, diabetic), 31 GX5/16, DIS NEEDLE, MISCELL, [facility], 100 ea. BOX Active [id number] 10/20/19 2 4 2023 400 Pharmac y Data Transac tion Service Facilit y TRAMADOL HCL (tramadol HCl), 50 MG, TABLET, ORAL, [employer] 500 ea. BOTTLE Active [id number] 4 2023 360 Pharmac y Data Transac tion Service Facilit y TRIAMCINOLO NE ACETONIDE (triamcinol one acetonide), 0.1 %, CREAM (G), TOPICAL, [employer] 454 g JAR Cancele d [id number] : 2023 0 Pharmac y Data Transac tion Service Facilit y TRIAMCINOLO NE ACETONIDE (TRIAMCINOL ONE ACETONIDE), 0.1%, CREAM(GM), TOPICAL, [employer] 15 g TUBE Active [id number] 4 2023 180 Pharmac y Data Transac tion Service Facilit y TRULICITY (dulaglutid e), 4.5 MG/0.5, PEN INJCTR, SUBCUT, [employer] .5 ml SYRINGE Cancele d [id number] : 2023 0 Pharmac y Data Transac tion Service Facilit y TRULICITY (dulaglutid e), 4.5 MG/0.5, PEN INJCTR, SUBCUT, [employer] .5 ml SYRINGE Cancele d [id number] : 2023 0 Pharmac y Data Transac tion Service Facilit y VITAMIN D2 (ergocalcif theo (vitamin D2)), 1250 MCG, CAPSULE, ORAL, [employer], 100 ea. BOTTLE Active [id number] 4 2023 12 Pharmac y Data Transac tion Service Facilit y Allergies, Adverse Reactions, Alerts Combined list of allergies from Department of Defense and Veterans Affairs facilities. It does not include entries that were removed or entered in error. Substance Category Reaction Severity Reaction type Status Date Reported Comments Source No Known Allergies Drug allergy (disorder) active 8 [facility] Immunizations Combined list of available immunizations from the Department of Defense and Veterans Affairs facilities. Immunization Series Date Given Administered By Site Reaction Lot Number CVX Code Drug Registered Associate Status Comments Source zoster recombinant 2023 () Not Given zoster recombina nt DoD COVID-19, mRNA, LNP-S, PF, 100 mcg or 50 mcg dose 2021 OC, [employer] (MOD) Not Given COVID-19, mRNA, LNP-S, PF, 100 mcg or 50 mcg dose DoD COVID-19, mRNA, LNP-S, PF, 100 mcg or 50 mcg dose 2020 ANGELA, [employer] (MOD) Not Given COVID-19, mRNA, LNP-S, PF, 100 mcg or 50 mcg dose DoD influenza, high-dose, quadrivalent 2020 OC, () Not Given influenza , high-dose , quadrival ent DoD influenza, high-dose, quadrivalent 2019 ALUL, () Not Given influenza , high-dose , quadrival ent DoD influenza virus vaccine, split virus (incl. purified surface antigen)-reti red CODE 1 2002 Unknown, Provider [id number] Sanofi Pasteur ([facility]MC) complet ed influenza virus vaccine, split virus (incl. purified surface antigen)- retired CODE DoD Encounters Combined list of: 1) Encounters from Department of Veterans Affairs facilities going backup to the last 18 months, not all VA inpatient encounters are included; 2) Encounters from the Department of Defense facilities going backup to 280 months. Location Location Details Encounter Type Encounter Number Reason For Visit Attending Provider ADM Date DC Date Status Disposition Source [facility] h(Immuniz ation [place]) OUTPATIENT [id number] ROSETTA IBRAHIM I 02/25 Released w/o Limitations [facility] ut(Imm unizati on [place]) Procedures Combined list of: 1) Procedures from Department of Veterans Affairs facilities going back up to thelast 18 months, not all [place] non-surgical procedures are included; 2) All procedures from the Department of Defense facilities. Procedure Procedure Type Code Date Perfomer Comments Qamar e IMMUNIZATION ADMINISTRATION (INCLUDES PERCUTANEOUS, INTRADERMAL, SUBCUTANEOUS, OR INTRAMUSCULAR INJECTIONS); 1 VACCINE (SINGLE OR COMBINATION VACCINE/TOXOID) 02/25/2003 DoD Immunization Administration One Vaccine Immunization Administration One Vaccine [id number] 02/25/2003 ROSETTA BENOIT I [facility] Influenza Split Virus Vaccine Age 3+ Years Intramuscular 02/25/2003 ROSETTA BENOIT I [facility] Social History Combined list of available smoking, tobacco, and other social history from Department of Defense and Veterans Affairs facilities. Social History Type Response Date Comment Sourc e This section is an empty social history section. [facility]
--- OUTSIDE RECORDS SUMMARY | 2024-09-28 11:39 | XMS_ITS | Clinical Summary ---
Author Organization [facility] [address] Address [address] [place] [address] Care Team Providers Care Professor Of Visual Arts Name Role Phone Jocy Moon MD Primary Care Provider [phone] Allergies Active Allergy Reactions Criticality Noted Date Comments Tor Inhibitors Unknown Low 02/27/2015 Makes her sick, Makes her sick, Makes her sick Codeine Medications ALPRAZolam (XANAX) 0.25 mg tablet Take 1 tablet (0.25 mg total) by mouth as needed 0 Active Lumigan 0.01 % ophthalmic drops 2 Active cyanocobalamin (Vitamin B-12) 1,000 mcg/mL injection 2 Active ergocalciferol (VITAMIN D) 50,000 unit capsule 2 Active metoprolol XL (TOPROL-XL) 100 mg 24 hr tablet [address] (PROTONIX) 40 mg EC tablet 2 Active Sure Comfort Pen Needle 31 gauge x 5/16 needle 2 Active pregabalin (LYRICA) 75 mg capsule 2 Active Monoject Syringe 3 mL 22 gauge x 1 syringe 2 Active timolol (TIMOPTIC) 0.5 % ophthalmic solution 2 Active mirtazapine (REMERON) 15 mg tablet TAKE 1/2 TO 1 TABLET BY MOUTH EVERY NIGHT AT BEDTIME 2 Active mupirocin (BACTROBAN) 2 % ointment Apply topically 3 (three) times a day 2 Active potassium chloride ER 10 mEq CR capsule 3 Active furosemide (LASIX) 20 mg tablet Take 1 tablet (20 mg total) by mouth 2 (two) times a day Active HYDROcodone-acetam inophen (NORCO) 5-325 mg per tablet Take 1 tablet by mouth every 4 (four) hours as needed for pain 5 Active dulaglutide (Trulicity) 4.5 mg/0.5 mL pen injectorIndication s:Type 2 diabetes mellitus with diabetic polyneuropathy, with long-term current use of insulin (HCC) Inject 0.5 mL (4.5 mg total) under the skin once a week 6 mL 3 5 07/13/19 26 Active insulin aspart protamine-insulin aspart 70/30 (NovoLOG 70/30) 100 unit/mL pen for injectionIndicatio ns:Type 2 diabetes mellitus with diabetic polyneuropathy, with long-term current use of insulin (HCC) Inject 32 Units under the skin 3 (three) times a day with meals 86.4 mL 3 5 07/13/19 26 Active levothyroxine (SYNTHROID) 150 mcg tabletIndications: Acquired hypothyroidism Take 1 tablet (150 mcg total) by mouth daily 30 tablet 07/20/19 26 Active Active Problems Problem Noted Date Diagnosed Date Morbid obesity with BMI of 45.0-49.9, adult 02/27 Assessment & Plan (01/19/2024 11:03 AM CDT): Counseled on diet and advised to increase physical activity as tolerated Assessment & Plan (08/28/2023 8:35 AM CDT): Advised to include resistance training exercises to work on strength and balance building Assessment & Plan (02/11/2023 10:39 AM CDT): Counseled on diet and exercise advised to increase physical activity as tolerated Wound of left leg 10/02/2021 Multiple benign melanocytic nevi of upper extremity, lower extremity, and trunk 09/26/2020 Overview (03/25/2022): Last Assessment & Plan: - Benign, reassured patient - Reviewed the importance of sun protection (including sunscreen, wearing hats, minimizing sun exposure) - Reviewed ABCDEs for moles Neoplasm of uncertain behavior of skin Overview (03/25/2022): Last Assessment & Plan: - L forearm and L calf - Ddx includes ISK w/ cutaneous horn vs. SCC vs. HAK - Shave Biopsy x2 performed (see procedure note) - Post-biopsy handout given - Wound care instructions reviewed - Will call patient with biopsy results. If intervention is indicated, will make arrangements at that time Solar lentiginosis 09/26/2020 Overview (03/25/2022): Last Assessment & Plan: - Benign, reassured patient - Marker of UVR damage with increased risk of sin cancer - Advised routine skin cancer monitoring - Recommend daily OTC sunscreen use with SPF >30, broad spectrum Neuropathy due to type 2 diabetes mellitus 02/12 Xerosis cutis 08/01/2015 Hypothyroidism 02/09/2015 Assessment & Plan (01/19/2024 11:03 AM CDT): Chronic, unknown status Patient recently had labs done with PCP Advised patient to forward them to me For now continue current dose of levothyroxine Assessment & Plan (08/28/2023 8:35 AM CDT): Chronic, stable Continue current dose of levothyroxine Assessment & Plan (02/11/2023 10:38 AM CDT): Chronic, uncontrolled Continue current dose of levothyroxine next number recheck thyroid function test today and further plans based on it it Assessment & Plan (07/29/2022 12:05 PM CDT): Pt currently on Levoxyl 200 mcg oral daily Assessment & Plan (03/25/2022 10:40 AM NEONATAL NURSE): Pt currently on Levoxyl 200 mcg oral daily Check TSH today and further plans based on it Essential hypertension, benign 05/18/2014 GERD (gastroesophageal reflux disease) 5 Glaucoma 05/18/2014 Hypercalcemia 05/18/2014 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 See proc note Type 2 diabetes mellitus wit h diabetic polyneuropathy, with long-term current use of insulin 11/16/2008 Overview (07/31/2016): DMII WO CMP UNCNTRLD Assessment & Plan (01/19/2024 11:02 AM CDT): Chronic, complicated by overnight hypoglycemia A1c 7.6% Reviewed freestyle Meghana download Noted postprandial hyperglycemia during daytime and overnight low blood sugars Average glucose 165 Target blood sugar range 62% High 27% Very high 8% Low 2% Very low 1% - advised to take decrease insulin by 10 units with dinner - also advised a bedtime snack with dinner - continue current dose of Trulicity 4.5 mg subQ weekly - will try to obtain patient's last eye exam copy Assessment & Plan (08/28/2023 8:38 AM CDT): Chronic, improving control, overall fairly controlled for patient age A1c 7.7% Goal to avoid hypoglycemia Reviewed freestyle Meghana download Noted postprandial hyperglycemia after lunch and dinner and overnight occasional low blood sugar - take 10 units less insulin with dinner and rest all treatment remain the same - continue current dose of Trulicity Upgrade to Freestyle meghana 3 sensor Assessment & Plan (02/11/2023 10:38 AM CDT): Chronic, uncontrolled worsening A1c 7.9% Counseled on diet and exercise Advised to increase Trulicity to 4.5 mg subQ weekly Recommend annual dilated eye exam Labs today Daily foot care Follow-up as scheduled Assessment & Plan (07/29/2022 12:11 PM CDT): Chronic, overall fairly controlled for pt age A1c - 7.2 % No hypoglycemia noted Plan to continue current dose of Novolog 70/30 insulin Continue Trulicity 3 mg SQ weekly Counseled on diet and increase physical activity as tolerated Annual dilated eye exam Will try to obtain pt last eye exam copy daily foot care Keep following with [employer] Sales Representative Upgrade Freestyle meghana to 3 version - sent in script Follow Up in 6 months Assessment & Plan (03/25/2022 10:40 AM NEONATAL NURSE): Chronic, Overall fair controlled for pt age A1c - 7.3 % Target BS range - 78 % continue current medication regimen Educated on sick day rules Daily foot care Check Urine Microalbuminuria today Advise to make an eye exam appt soon Follow up in four months Resolved Problems Problem Noted Date Diagnosed Date Resolved Date Morbid obesity with BMI of 40.0-44.9, adult 03/25/2022 02/11/2023 Assessment & Plan (07/29/2022 12:05 PM CDT): Counseled on diet and exercise Assessment & Plan (03/25/2022 10:40 AM NEONATAL NURSE): counseled on diet and exercise Encounters Date Type Department Care Team Description 07/19/[address] [facility] Diabetes and Endocrinology [address] [place] [phone] Truong Gardner MD 07/14/2024 Results Follow-Up [facility] [id number] [place] [phone] Truong Gardner MD Comprehensive metabolic panel, Lipid panel, Thyroid Function Ocean, Additional followed-up results: 4 07/12/2024 2:[address] [facility] Outpatient Lab at [address] [phone] Type 2 diabetes mellitus with diabetic polyneuropathy, with long-term current use of insulin (HCC) (Primary Dx) 07/12/2024 2:39 PM CDT - 07/12/2024 11:59 PM CDT Hospital Encounter [address] [address] Type 2 diabetes mellitus with diabetic polyneuropathy, with long-term current use of insulin (HCC); Acquired hypothyroidism Discharge Disposition: Discharge to home or self care 07/12/2024 2:00 PM CDT Office Visit [facility] Diabetes [facility] Endocrinology [address] [place] [phone] Truong Gardner MD Type 2 diabetes mellitus with diabetic polyneuropathy, with long-term current use of insulin (HCC) (Primary Dx); Acquired hypothyroidism 07/12/2024 Telephone [facility] Diabetes and Endocrinology [address] [place] [phone] Truong Gardner MD Total Med Supply from Last 3 Months Immunizations Immunization Administration Dates Next Due Influenza, Quadrivalent, Hig h Dose, Preservative Free, Intrr 01/19/2021,01/25/2020 Influenza, Trivalent, Adjuva nted, Intramuscular 01/25/2018 Influenza, Trivalent, High D ose, Split, Preservative Free, Intramuscular 01/25/2019,02/03/2017,01/22/2017,02/07,02/06/2014 Influenza, Trivalent, IM (MDV) 01/18/2013,2011 Influenza, Trivalent, Preser vative Free, Intramuscular 02/12/2015 Influenza, Unspecified 01/26/2018,02/25/2003 Tdap 09/30/2017 Medical History Medical History Date Comments Diabetes mellitus (HCC) Diabetes Hypertension Hypertension Disorder of thyroid Thyroid dise ase Malignant neoplasm of skin 2010 Cance r, skin Family History Medical History Relation Name Comments Other Other 1 No family histo ry of Coronary artery disease; Other Other 2 No family histo ry of Diabetes mellitus; Other Other 3 No family histo ry of Hypertension; Relation Name Status Comments Other 1 Other 2 Other 3 Social History Tobacco Use Types Packs/Day Years Used Date Smoking Tobacco: Never Alcohol Use Standard Drinks/Week Comments No 0 (1 standard drink = 0.6 oz pur e alcohol) PHQ-2 Answer Date Recorded PHQ-2 Total Score (If total score is 3 or more points, staff should administer the PHQ-9) 0 08/21/2023 Comments Unknown Sex and Gender Information Value Date Recorded Sex Assigned at Not on file Legal Sex Female 3:41 PM NEONATAL NURSE Gender Identity Female 08/01/2023 7:51 AM CDT Sexual Orientation Straight 08/01/2023 7: 51 AM CDT Obstetrics History Last Filed Vital Signs Vital Sign Reading Time Taken Comments Blood Pressure 118/70 07/12/2024 1:49 PM CDT Pulse 68 07/12/2024 1:49 PM CDT Temperature - - Respiratory Rate 18 07/12/2024 1:49 PM CDT Oxygen Saturation - - Inhaled Oxygen Concentration - - Weight 114.9 kg (253 lb 3.2 oz) 023 10:31 AM CDT Height 152.4 cm (5') 07/12/2024 1:49 PM CDT Body Mass Index 49.45 07/29/2022 10:31 AM CDT Plan of Treatment Health Maintenance Due Date Last Done Comments Osteoporosis Screening-Bone Density Scan 1943 Hepatitis B Screening 1961 Pneumococcal vaccine 65+ (1 of 2 - PCV) 1962 Zoster Vaccine (1 of 2) 1993 Well Visit 65+ 2008 Albumin Creatinine Ratio, Urine 03/25/2023 Covid-19 Vaccine (4 - 2023-2 5 season) 2023 02/20/2021, 07/19/2020, 06/21/2020 Depression Screening 08/20/2024 08/21/2023 Influenza Vaccine (Season Ended) 2024 01/19/2021, 01/25/2020, 01/25/2019, Additional history exists Hemoglobin A1C 01/12/2025 07/12/2024, 12/28, 01/19/2024, Additional history exists Fall Risk Assessment 01/18/2025 01/19/2024, 08/21/19 24 Foot Exam 01/18/2025 01/19/2024, 07/28, 02/10/2023, Additional history exists Dilated Eye Exam 01/21/2025 01/22/2024, 06/26/2022 Lipid Panel 07/12/2025 07/12/2024, 12/28, 02/10/2023, Additional history exists eGFR 07/12/2025 07/12/2024, 12/28, 02/10/2023, Additional history exists DTaP/Tdap/Td Vaccine (2 - Td or Tdap) 10/01/2027 09/30/2017 Procedures Procedure Name Priority Date/Time Associated Diagnosis Comments EGFR Routine 07/12/2024 2:39 PM CDT Type 2 diabetes mellitus with diabetic polyneuropathy, with long-term current use of insulin (HCC) T4, FREE Routine 07/12/2024 2:39 PM CDT Acquired hypothyroidism DIFFERENTIAL AUTO Routine 07/12/2024 2:3 9 PM CDT Type 2 diabetes mellitus with diabetic polyneuropathy, with long-term current use of insulin (HCC) CBC WITH AUTO DIFFERENTIAL Routine 07/12/2024 2:39 PM CDT Type 2 diabetes mellitus with diabetic polyneuropathy, with long-term current use of insulin (HCC) THYROID FUNCTION CASCADE Routine 07/12/2024 2:39 PM CDT Acquired hypothyroidism LIPID PANEL Routine 07/12/2024 2:39 PM CDT Type 2 diabetes mellitus with diabetic polyneuropathy, with long-term current use of insulin (HCC) COMPREHENSIVE METABOLIC PANEL Routine 07/12/2024 2:39 PM CDT Type 2 diabetes mellitus with diabetic polyneuropathy, with long-term current use of insulin (HCC) POCT HEMOGLOBIN A1C Routine 07/12/2024 1 :53 PM CDT Type 2 diabetes mellitus with diabetic polyneuropathy, with long-term current use of insulin (HCC) POCT GLUCOSE Routine 07/12/2024 1:53 PM CDT Type 2 diabetes mellitus with diabetic polyneuropathy, with long-term current use of insulin (HCC) HM DIABETES EYE EXAM Routine 01/22/2024 9:17 AM CDT ALBUMIN CREATININE RATIO, URINE Routine 03/25/2022 10:44 AM NEONATAL NURSE Type 2 diabetes mellitus with diabetic polyneuropathy, with long-term current use of insulin (HCC) from Last 3 Months or Most Recently Relevant to Health Maintenance Results * eGFR (07/12/2024 2:39 PM CDT) eGFR 60 >=60 mL/min/1. 73 m2 Comment: Interpretive Data Reference Interval Normal >/= 90 mL/min/1.73m2 Mildly decreased* 60 - 89 mL/min/1.73m2 Mildly to moderately decreased 45 - 59 mL/min/1.73m2 Moderately to severely decreased 30 - 44 mL/min/1.73m2 Severely decreased 15 - 29 mL/min/1.73m2 Kidney Failure < 15 mL/min/1.73m2 *Relative to young adult level Estimated glomerular filtration rate is determined by the 2020 CKD-EPI equation recommended by the National Kidney Foundation (A Unifying Approach to GFR Estimation: Recommendations of the NKF-ASK Task Force on Reassessing the Inclusion of Race in Diagnosing Kidney Disease, JASN 202). The CKD-EPI equation should not be used for patients with unstable renal function and has not been validated in children and those over 70. Current interpretive data was last reviewed 2021. Blood 07/12/2024 2:39 PM CDT 07/12/2024 9:50 PM CDT us Truong Villeda MD LAB BLOOD ORDERABLE S Final Result [facility] [address] Department [place] [address] * Differential, auto (07/12/2024 2:39 PM CDT) Neutrophil abs 3.7 1.5 - 6.5 K/cumm Imm gran abs 0.0 0.0 - 0.1 K/cumm [facility] Lymphocyte abs 2.5 0.8 - 3.3 K/cumm [facility] Monocyte abs 0.6 0.2 - 0.8 K/cumm [facility] Eosinophil abs 0.1 0.0 - 0.5 K/cumm [facility] Basophil abs 0.1 0.0 - 0.1 K/cumm [facility] Neutrophil pct 52.4 % [facility] Comment: Interpretive Data Percent cell count reference ranges are not reported, since discordance with absolute values may lead to misinterpretation of CBC data. Current Interpretive Data was last revised on 2017. Imm gran pct 0.3 % [facility] Comment: Interpretive Data Percent cell count reference ranges are not reported, since discordance with absolute values may lead to misinterpretation of CBC data. Current Interpretive Data was last revised on 2017. Lymphocyte pct 35.7 % [facility] Comment: Interpretive Data Percent cell count reference ranges are not reported, since discordance with absolute values may lead to misinterpretation of CBC data. Current Interpretive Data was last revised on 2017. Monocyte pct 8.3 % [facility] Comment: Interpretive Data Percent cell count reference ranges are not reported, since discordance with absolute values may lead to misinterpretation of CBC data. Current Interpretive Data was last revised on 2017. Eosinophil pct 2.0 % [facility] Comment: Interpretive Data Percent cell count reference ranges are not reported, since discordance with absolute values may lead to misinterpretation of CBC data. Current Interpretive Data was last revised on 2017. Basophil pct 1.3 % [facility] Comment: Interpretive Data Percent cell count reference ranges are not reported, since discordance with absolute values may lead to misinterpretation of CBC data. Current Interpretive Data was last revised on 2017. Blood 07/12/2024 2:39 PM CDT 07/12/2024 8:54 PM CDT Truong Villeda MD LAB BLOOD ORDERABLE S Final Result Performing Organization Address [facility] Co de Phone Number [facility]RE[facility] ALVAREZ [id number] [facility] [place], [place] [id number] * (ABNORMAL) Thyroid Function Ocean (07/12/2024 2:39 PM CDT) TSH 0.07(L) 0.30 - 4.20 mcIUnit/mL Blood 07/12/2024 2:39 PM CDT 07/12/2024 8:54 PM CDT Truong Villeda MD LAB BLOOD ORDERABLE S Final Result Performing Organization Address [facility] Co de Phone Number DONTRELL ALVAREZ [address] [facility] [place] [address] * CBC with auto differential (07/12/2024 2:39 PM CDT) WBC 7.1 3.8 - 9.9 K/cumm Hgb 13.8 11.9 - 15.5 g/dL [facility] Hct 42.7 35.6 - 45.5 % [facility] Plt 229 150 - 400 K/cumm [facility] MPV 10.0 9.1 - 12.[address] [facility] RBC 4.74 3.90 - 5.20 M/cumm [facility] MCV 90.1 81.3 - 96.[address] [facility] MCH 29.1 27.1 - 33.3 pg [facility] MCHC 32.3 32.3 - 35.7 g/dL [facility] CH RDW CV 13.5 11.1 - 14.9 % [facility] CH RDW SD 44.4 35.7 - 48.[address] [facility] NRBC abs 0.00 0.00 - 0.01 K/cumm [facility] Blood 07/12/2024 2:39 PM CDT 07/12/2024 8:54 PM CDT Truong Villeda MD LAB BLOOD ORDERABLE S Final Result [facility] [address] [facility] [place] [address] * (ABNORMAL) T4, free (07/12/2024 2:39 PM CDT) Free T4 1.83(H) 0.90 - 1.70 ng/dL Blood 07/12/2024 2:39 PM CDT 07/12/2024 9:50 PM CDT Truong Villeda MD LAB BLOOD ORDERABLE S Final Result Performing Organization Address [facility] Co de Phone Number DONTRELL ALVAREZ [address] [place] [address] * Lipid panel (07/12/2024 2:39 PM CDT) Cholesterol 172 30 - 199 mg/dL Comment: Interpretive Data Ages < or = 19 years Acceptable: <170 mg/dL Borderline high: 170-199 mg/dL High: >or= 200 mg/dL Ages > or = 20 years Desirable: <200 mg/dL Borderline high: 200-239 mg/dL High: >or= 240 mg/dL Literature References: 1. Expert Panel on Integrated Guidelines for Cardiovascular Health and Risk Reduction in Children and Adolescents. Pediatrics 2011;128:S213 2. NCEP Expert Panel. Circulation 2004;110:227 Current Interpretive Data was last revised on 2017. Triglycerides 136 <=149 mg/dL [facility] Comment: Interpretive Data Ages < or = 9 years Acceptable: <75 mg/dL Borderline high: 75-99 mg/dL High: >or= 100 mg/dL Ages 10 to 20 years Acceptable: <90 mg/dL Borderline high: 90-129 mg/dL High: >or= 130 mg/dL Ages > or = 20 years Desirable: <150 mg/dL Borderline high: 150-199 mg/dL High: 200-499 mg/dL Very high: >or= 499 mg/dL Literature References: 1. Expert Panel on Integrated Guidelines for Cardiovascular Health and Risk Reduction in Children and Adolescents. Pediatrics 2011;128:S213 2. NCEP Expert Panel. Circulation 2004;110:227 Current Interpretive Data was last revised on 2017. HDL 54 >=40 mg/dL DONTRELL ALVAREZ Comment: Interpretive Data Ages < or = 19 years Acceptable: >45 mg/dL Borderline low: 40-45 mg/dL Low: <40 mg/dL Ages > or = 20 years Desirable: >or= 60 mg/dL Low: <40 mg/dL Literature References: 1. Expert Panel on Integrated Guidelines for Cardiovascular Health and Risk Reduction in Children and Adolescents. Pediatrics 2011;128:S213 2. NCEP Expert Panel. Circulation 2004;110:227 Current Interpretive Data was last revised on 2017. LDL, calculated 94 <=129 mg/dL DONTRELL ALVAREZ Comment: Interpretive Data Ages < or = 19 years Acceptable: <110 mg/dL Borderline high: 110-129 mg/dL High: >or= 130 mg/dL Ages > or = 20 years Optimal: <100 mg/dL Near optimal: 100-129 mg/dL Borderline high: 130-159 mg/dL High: >160 mg/dL Calculated using the Earl LDL-C estimating equation. This equation was implemented on 2023. Prior to this date LDL-C was estimated using the Friedewald equation. Literature References: 1. Expert Panel on Integrated Guidelines for Cardiovascular Health and Risk Reduction in Children and Adolescents. Pediatrics 2011;128:S213 2. NCEP Expert Panel. Circulation 2004;110:227 3. Earl Burns al. FELICITY Cardiol. 2020 August 26;5(5):540-548. doi: 10.1001/jamacardio.2020.0013 Current Interpretive Data was last revised on 2023. Non-HDL Cholesterol 118 mg/dL [facility]ONT[facility] ALVAREZ Comment: Interpretive Data Ages < or = 19 years Acceptable: <120 mg/dL Borderline high: 120-144 mg/dL High: >145 mg/dL Ages > or = 20 years When triglycerides are >200 mg/dL, Non-HDL cholesterol is a secondary target of therapy with treatment goals that are 30 mg/dL greater than the LDL cholesterol target. Literature References: 1. Expert Panel on Integrated Guidelines for Cardiovascular Health and Risk Reduction in Children and Adolescents. Pediatrics 2011;128:S213 2. NCEP Expert Panel. Circulation 2004;110:227 Current Interpretive Data was last revised on 2017. Chol/HDL ratio 3 [facility] Blood 07/12/2024 2:39 PM CDT 07/12/2024 8:54 PM CDT Truong Villeda MD LAB BLOOD ORDERABLE S Final Result [facility] [id number] Department [place] [address] * (ABNORMAL) Comprehensive metabolic panel (07/12/2024 2:39 PM CDT) Sodium 138 135 - 145 mmol/L Potassium, pl 4.4 3.3 - 4.9 mmol/L [facility] Chloride 99 97 - 110 mmol/L [facility] CO2 31 22 - 32 mmol/L [facility] Anion gap 8 2 - 15 mmol/L [facility] BUN 15 6 - 25 mg/dL [facility] Creatinine 0.95 0.60 - 1.10 mg/dL [facility] Glucose 172 70 - 199 mg/dL [facility] Comment: Interpretive Data Fasting glucose >/= 126 mg/dl is diagnostic for diabetes. Fasting is defined as no caloric intake for at least 8 hours. Fasting glucose between 100 mg/dl to 125 mg/dl is diagnostic of prediabetes. In a patient with classic symptoms of hyperglycemia or hyperglycemic crisis, a random glucose >/= 200 mg/dl is diagnostic for diabetes. In the absence of unequivocal hyperglycemia, results should be confirmed by repeat testing. The classification and Diagnosis of Diabetes Diabetes Care 202; 46: S19-S40. Current interpretive data was last revised 2022. Calcium 9.8 8.5 - 10.3 mg/dL [facility] Bilirubin, total 0.2 0.1 - 1.2 mg/dL [facility] Protein, pl 7.2 6.5 - 8.5 g/dL [facility] Albumin 3.4(L) 3.5 - 5.0 g/dL [facility] Alk phos 93 40 - 130 Units/L [facility] ALT 16 7 - 45 Units/L [facility] AST 26 10 - 45 Units/L [facility] Blood 07/12/2024 2:39 PM CDT 07/12/2024 8:54 PM CDT Truong Villeda MD LAB BLOOD ORDERABLE S Final Result [facility] [address] Department [place] [address] * (ABNORMAL) POCT hemoglobin A1c (07/12/2024 1:53 PM CDT) Hemoglobin A1C, POC 8.0 4.0 - 5.6 % Blood 07/12/2024 1:53 PM CDT Truong Villeda MD POINT OF CARE TEST ORDERABLES Final Result * (ABNORMAL) POCT glucose (07/12/2024 1:53 PM CDT) Glucose Blood, POC 246 mg/dL Blood 07/12/2024 1:53 PM CDT Truong Villeda MD POINT OF CARE TEST ORDERABLES Final Result * (ABNORMAL) DIABETES EYE EXAM (01/22/2024 9:17 AM CDT) Historical Provider HEALTH MAINTENANCE Edited Result - Final * Albumin Creatinine Ratio, Urine (03/25/2022 10:44 AM NEONATAL NURSE) Albumin Ur <12.0 mg/L [facility] Comment: Interpretive Data No reference range established. Current interpretive data was last revised 2018. Creatinine Ur 42.8 mg/dL [facility] Comment: Interpretive Data No reference range established. Current interpretive data was last revised 2018. Albumin Creatinine Ratio, Ur <28 1 - 29 mg/g [facility] Urine 03/25/2022 10:4 4 AM NEONATAL NURSE 03/25/2022 3:51 PM NEONATAL NURSE Truong Villeda MD LAB URINE ORDERABLE S Final Result [facility] [address] Department [place] [address] from Last 3 Months or Most Recently Relevant to Health Maintenance Insurance MEDICARE [employer] LIFE MEDICARE FOR LIFE Care Teams Professor Of Visual Arts Relationship Specialty Start Date End Date Jocy Moon MD PCP - General 02/12/07
--- OUTSIDE RECORDS SUMMARY | 2024-09-28 11:39 | XMS_ITS | Clinical Summary ---
Author Organization [facility] Address [address] [place] [address] Care Team Providers Care Make Up Editor Name Role Phone Jocy Moon MD Primary Care Provider [phone] Source Comments [facility],non-owned Affiliates and Associated Physician Practices is amultiple site organization consisting of ambulatory clinics and hospital sitesin [place], [place], [place] and [place]. This disclosure is being madepursuant to the Care Everywhere program and may not contain all information available regarding this patient. Last updated 18.[facility] Allergies Active Allergy Reactions Criticality Noted Date Comments Codeine Nausea and/or Vomiting High 12/19/2009 Hmg-Coa-R Inhibitors Other Low 02/27/2015 Makes her sick, Makes her sick, Makes her sick Medications * Be aware that medications may not be up to date on this document. Alwaysverify current medications with the patient. diclofenac sodium (VOLTAREN) 1 % gel 12/27/19 16 Active traMADol (ULTRAM) 50 MG tablet Take 50 mg by mouth every 6 hours as needed 10/22/19 19 Active LYRICA 75 MG capsule Take 75 mg by mouth 2 times daily 75 MG IN AM, 150 MG IN PM 09/07/19 19 Active LUMIGAN 0.01 % ophth solution Instill 1 drop into both eyes at bedtime 10/24/19 19 Active pantoprazole EC (PROTONIX) 40 MG tablet Take 40 mg by mouth once daily 08/18/19 19 Active vitamin D, ergocalciferol, (DRISDOL) 75930 units capsule Take 50,000 Units by mouth every 7 days 07/13/19 19 Active metoprolol succinate XL 24hr (TOPROL XL) 100 MG tablet Take 100 mg by mouth once daily 04/05/20 20 Active timolol maleate (TIMOPTIC) 0.5 % ophthalmic solution Instill 1 drop into both eyes every morning 01/17/20 20 Active ALPRAZolam (XANAX) 0.25 MG tablet Take 0.25 mg by mouth as needed 09/21/19 20 Active ASPIRIN 81 PO Take 1 tablet by mouth once daily Active NOVOLOG MIX 70/30 FLEXPEN penIndications:Typ e 2 diabetes mellitus without complication, with long-term current use of insulin (HCC) Inject 44 (forty four) Units subcutaneously 3 times daily with meals 120 mL 4 12/27/19 21 Active cyanocobalamin (VITAMIN B-12) injection Inject 1 mL into muscle every 30 days 03/12/20 21 Active mirtazapine (REMERON) 15 MG tablet TAKE 1/2 TO 1 TABLET BY MOUTH EVERY NIGHT AT BEDTIME 07/03/19 22 Active MONOJECT 3CC SYR 22GX1 22G X 1 3 ML MISC 07/11/19 22 Active mupirocin (BACTROBAN) 2 % ointmentIndication s:Wound of left lower extremity, initial encounter Apply to affected area 3 times daily Apply to wound on left mendenhall three times a day for 2 weeks. 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 SCC vs. HAK - Shave Biopsy x2 performed (see procedure note) - Post-biopsy handout given - Wound care instructions reviewed - Will call patient with biopsy results. If intervention is indicated, will make arrangements at that time Multiple benign melanocytic nevi of upper extremity, lower extremity, and trunk 09/26/2020 Assessment & Plan (09/26/2020 2:11 PM CDT): - Benign, reassured patient - Reviewed the importance of sun protection (including sunscreen, wearing hats, minimizing sun exposure) - Reviewed ABCDEs for moles Solar lentiginosis 09/26/2020 Assessment & Plan (09/26/2020 2:11 PM CDT): - Benign, reassured patient - Marker of UVR damage with increased risk of sin cancer - Advised routine skin cancer monitoring - Recommend daily OTC sunscreen use with SPF >30, broad spectrum Inflamed seborrheic keratosis 09/26/2020 Assessment & Plan (09/26/2020 2:10 PM CDT): - R latter day x3 - Given symptoms, we treated 3 ISKs with cryo. 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 Overview (09/26/2020): CHR LYMPHOCYT THYROIDIT History of nonmelanoma skin cancer 11/09/2010 Assessment & Plan (09/26/2020 2:11 PM CDT): -NER - Rec annual FBSE Actinic keratosis 03/08/2010 Assessment & Plan (09/26/2020 2:10 PM CDT): - Counseled on diagnosis, etiology, natural disease course- including pre- malignant nature of lesions and association with sun exposure - 3 AKs treated today with LN2 - Wound care instructions provided - Counseled on importance of daily sun protection (SPF 30+, UVA/UVB) and monthly self skin exams Seborrheic keratosis 03/08/2010 Assessment & Plan (09/26/2020 2:11 PM CDT): - Benign, reassured patient Type 2 diabetes mellitus 11/16/2008 Overview (09/26/2020): DMII WO CMP UNCNTRLD Immunizations Immunization Administration Dates Next Due INFLUENZA VACCINE, TRIV. (AF LURIA, FLUZONE TRIVALENT; 6MO+) (IIV3) 01/18/2013,02/17/2012 Covid Moderna primary monova lent 12+ yr 0.5mL 02/20/2021,07/19/2020,06/21/2020 INFLUENZA VACCINE 01/25/2019, 8,02/03/2017,2016,02/08/2016,02/12/2015,02/06/2014,1 INFLUENZA VACCINE, ADJUVANTE D, TRIV. (FLUAD TRIVALENT; 65Y+) (AIIV3) 01/26/2018,01/25/2018 INFLUENZA VACCINE, HIGH-DOSE , QUADR. (FLUZONE HIGH-DOSE QUADRIVALENT; 65Y+), 0.7 ML (HD-IIV4) 01/19/2021,01/25/2020,01/25/2019,2016 TDAP (7yrs+) 09/30/2017 Family History Medical History Relation Name Comments None Known Brother Thyroid Disease Daughter ana's thyroiditis None Known Father None Known Maternal Aunt Heart Disease Maternal Grandfather Hypertension Maternal Grandfather None Known Maternal Grandmother None Known Maternal Uncle Cancer Mother lung; uterine Kidney Disease Mother nephritis Thyroid Disease Other 1 niece Status: Aliv e Cancer Other 2 skin None Known Paternal Aunt None Known Paternal Grandfather None Known Paternal Grandmother None Known Paternal Uncle None Known Sister Allergy (Severe) Neg Hx Asthma Neg Hx CVA Neg Hx Cancer - Breast Neg Hx Cancer - Other Neg Hx Cancer - Skin, Melanoma Neg Hx Cancer - Skin, Non Melanoma Neg Hx Diabetes Neg Hx Eczema Neg Hx Elevated Lipids Neg Hx Hemophilia Neg Hx Psoriasis Neg Hx Rashes/Skin Problems Neg Hx Relation Name Status Comments Brother Daughter Father Maternal Aunt Maternal Grandfather Maternal Grandmother Maternal Uncle Mother Other 1 niece Other 2 Paternal Aunt Paternal Grandfather Paternal Grandmother Paternal Uncle Sister Social History Tobacco Use Types Packs/Day Years Used Date Smoking Tobacco: Never Smokeless Tobacco: Never Alcohol Use Standard Drinks/Week Comments No 0 (1 standard drink = 0.6 oz pur e alcohol) Comments No Sex and Gender Information Value Date Recorded Sex Assigned at Not on file Legal Sex Female 5:19 PM PRESSURE TESTER OPERATOR Gender Identity Not on file Sexual Orientation Not on file Last Filed Vital Signs Vital Sign Reading Time Taken Comments Blood Pressure 144/82 06/05/2021 11:25 AM PRESSURE TESTER OPERATOR Pulse 58 06/05/2021 11:25 AM PRESSURE TESTER OPERATOR Temperature 36.6 C (97.8 F) 06/05/2021 11:25 AM PRESSURE TESTER OPERATOR Respiratory Rate 12 02/12/2017 1:34 PM CDT Oxygen Saturation 96% 06/05/2021 11:25 AM PRESSURE TESTER OPERATOR Inhaled Oxygen Concentration - - Weight 121.1 kg (267 lb) 06/05/2021 11:25 AM PRESSURE TESTER OPERATOR Height 152.4 cm (5') 06/05/2021 11:25 AM PRESSURE TESTER OPERATOR Body Mass Index 52.14 06/05/2021 11:25 AM PRESSURE TESTER OPERATOR Plan of Treatment Health Maintenance Due Date Last Done Comments BONE DENSITY TESTING 1945 MEDICARE AWV 12 MONTHS 1943 DIABETES-SERUM CREATININE 1961 PNEUMOCOCCAL VACCINE 50+ (1 of 2 - PCV) 1962 DIABETES-STATIN 1983 ZOSTER VACCINE (1 of 2) 1993 DIABETES RETINOPATHY SCREENING 07/28/2017 Respiratory Syncytial Virus (RSV) Vaccine Pt: or over 60 yrs (1 - 1-dose 75+ series) 2018 DIABETES-FOOT EXAM WITH MONOFILAMENT 10/27/2019 10/26/2018, 09/29/2017, 09/29/2017 DIABETES-HGB A1C 09/02/2021 06/05/2021, 06/2019, 02/23/2019, Additional history exists COVID-19 VACCINE ( season) 2023 02/20/2021, 07/19/2020, 06/21/2020 DEPRESSION SCREENING 04/28/2024 DIABETES - URINE PROTEIN SCREENING 04/28/2024 INFLUENZA VACCINE (Season Ended) 2024 01/19/2021, 01/25/2020, 01/25/2019, Additional history exists DTAP/TDAP/TD VACCINES (2 - Td or Tdap) 10/01/2027 09/30/2017 HEPATITIS B VACCINE Aged Out No longe r eligible based on patient's age to complete this topic HIB VACCINE Aged Out No longer eligi ble based on patient's age to complete this topic HPV VACCINE Aged Out No longer eligi ble based on patient's age to complete this topic MENINGOCOCCAL (Group B) VACCINE SHARED DECISION-MAKING Aged Out No longer eligible based on patient's age to complete this topic MENINGOCOCCAL GROUPS A/C/Y/W VACCINE Aged Out No longer eligible based on patient's age to complete this topic Procedures Procedure Name Priority Date/Time Associated Diagnosis Comments HEMOGLOBIN A1C - POINT OF CARE (AMB) [facility] Routine 06/05/2021 Type 2 diabetes mellitus without complication, with long-term current use of insulin from Last 3 Months or Most Recently Relevant to Health Maintenance Results * HEMOGLOBIN A1C - POINT OF CARE (AMB) [facility] (06/05/2021) Hemoglobin A1c POCT 9.8 % BLOOD SPECIMEN / Unknown 06/05/2021 Philipp Judge MD LAB - POINT OF CARE ORDERAB LES Final Result from Last 3 Months or Most Recently Relevant to Health Maintenance Insurance MEDICARE Care Teams Make Up Editor Relationship Specialty Start Date End Date Jocy Moon MD [address] [place] [address] PCP - General 03/02/08
--- OUTSIDE RECORDS SUMMARY | 2024-09-28 11:39 | XMS_ITS | Referral Summary ---
Author Organization [facility] [address] Address [address] [place] [address] Care Team Providers Care Web Knitter Name Role Phone Jocy Moon MD Primary Care Provider [phone] Encounters Date Type Department Care Team Description 07/19/2024 Telephone [facility] Diabetes and Endocrinology [address] [place] [phone] Truong Gardner MD 07/14/2024 Results Follow-Up [facility] [id number] [place] [phone] Truong Gardner MD Comprehensive metabolic panel, Lipid panel, Thyroid Function [place], Additional followed-up results: 4 07/12/2024 2:39 PM CDT - 07/12/2024 11:59 PM CDT Hospital Encounter [address] [address] Type 2 diabetes mellitus with diabetic polyneuropathy, with long-term current use of insulin (HCC); Acquired hypothyroidism Discharge Disposition: Discharge to home or self care 07/12/2024 Telephone [facility] Diabetes and Endocrinology [address] [place] [phone] Truong Gardner MD [facility] 07/12/2024 2:45 PM CDT Lab [facility] Outpatient Lab at [address] [phone] Type 2 diabetes mellitus with diabetic polyneuropathy, with long-term current use of insulin (HCC) (Primary Dx) 07/12/2024 2:00 PM CDT Office Visit [facility] Diabetes and Endocrinology [address] [place] [phone] Truong Gardner MD Type 2 diabetes mellitus with diabetic polyneuropathy, with long-term current use of insulin (HCC) (Primary Dx); Acquired hypothyroidism from Last 3 Months Allergies Active Allergy Reactions Criticality Noted Date [...] the skin once a week 6 mL 07/13/19 Active insulin aspart protamine-insulin aspart 70/30 (NovoLOG 70/30) 100 unit/mL pen for injectionIndicatio ns:Type 2 diabetes mellitus with diabetic polyneuropathy, with long-term current use of insulin (HCC) Inject 32 Units under the skin 3 (three) times a day with meals 86.4 mL 07/13/19 Active levothyroxine (SYNTHROID) 150 mcg tabletIndications: Acquired hypothyroidism Take 1 tablet (150 mcg total) by mouth daily 30 tablet 07/20/19 Active Active Problems Problem Noted Date Diagnosed [...] daily Assessment & Plan (03/25/2022 10:40 AM CLOTH DYE RANGE OPERATOR): Pt currently on Levoxyl 200 mcg oral [...] patient Last Assessment & Plan: - R adventism x3 - Given symptoms, we treated 3 [...] copy daily foot care Keep following with [employer] to 3 version - sent in script Follow Up in 6 months Assessment & Plan (03/25/2022 10:40 AM CLOTH DYE RANGE OPERATOR): Chronic, Overall fair controlled for pt age [...] exercise Assessment & Plan (03/25/2022 10:40 AM CLOTH DYE RANGE OPERATOR): counseled on diet and exercise Immunizations Immunization Administration Dates Next Due Influenza, Quadrivalent, Hig h Dose, Preservative Free, Intrr 01/19/2021,01/25/2020 Influenza, Trivalent, Adjuva nted, Intramuscular 01/25/2018 Influenza, Trivalent, High D ose, Split, Preservative Free, Intramuscular 01/25/2019,02/03/2017,01/22/2017,02/07,02/06/2014 Influenza, Trivalent, IM (MDV) 01/18/2013,2011 Influenza, Trivalent, Preser vative Free, Intramuscular 02/12/2015 Influenza, Unspecified 01/26/2018,02/25/2003 Tdap 09/30/2017 Social History Tobacco Use Types Packs/Day Years [...] on file Legal Sex Female 3:41 PM CLOTH DYE RANGE OPERATOR Gender Identity Female 08/01/2023 7:51 AM CDT Sexual Orientation Straight 08/01/2023 7: 51 AM CDT Last Filed Vital Signs Vital Sign Reading [...] 07/29/2022 10:31 AM CDT Plan of Treatment Not on file Procedures Procedure Name Priority Date/Time Associated Diagnosis [...] CREATININE RATIO, URINE Routine 03/25/2022 10:44 AM CLOTH DYE RANGE OPERATOR Type 2 diabetes mellitus with diabetic polyneuropathy, [...] of Race in Diagnosing Kidney Disease, JASN 2020). The CKD-EPI equation should not be used for patients with unstable renal function and has not been validated in children and those over 70. Current interpretive data was last reviewed 2021. Blood 07/12/2024 2:39 PM CDT 07/12/2024 9:50 PM CDT Truong Villeda MD LAB BLOOD ORDERABLE S Final Result [facility] [address] Department [place] [address] * Differential, auto (07/12/2024 2:39 PM CDT) Neutrophil abs 3.7 1.5 - 6.5 K/cumm Imm gran abs 0.0 0.0 - 0.1 K/cumm [facility] Lymphocyte abs 2.5 0.8 - 3.3 K/cumm [facility] Monocyte abs 0.6 0.2 - 0.8 K/cumm [facility] Eosinophil abs 0.1 0.0 - 0.5 K/cumm [facility] Basophil abs 0.1 0.0 - 0.1 K/cumm [facility] Neutrophil pct 52.4 % [facility] Comment: Interpretive Data Percent cell count reference ranges are not reported, since discordance with absolute values may lead to misinterpretation of CBC data. Current Interpretive Data was last revised on 2017. Imm gran pct 0.3 % [facility] Comment: Interpretive Data Percent cell count reference ranges are not reported, since discordance with absolute values may lead to misinterpretation of CBC data. Current Interpretive Data was last revised on 2017. Lymphocyte pct 35.7 % [facility] Comment: Interpretive Data Percent cell count reference ranges are not reported, since discordance with absolute values may lead to misinterpretation of CBC data. Current Interpretive Data was last revised on 2017. Monocyte pct 8.3 % [facility] Comment: Interpretive Data Percent cell count reference ranges are not reported, since discordance with absolute values may lead to misinterpretation of CBC data. Current Interpretive Data was last revised on 2017. Eosinophil pct 2.0 % [facility] Comment: Interpretive Data Percent cell count reference ranges are not reported, since discordance with absolute values may lead to misinterpretation of CBC data. Current Interpretive Data was last revised on 2017. Basophil pct 1.3 % [facility] Comment: Interpretive Data Percent cell count reference ranges are not reported, since discordance with absolute values may lead to misinterpretation of CBC data. Current Interpretive Data was last revised on 2017. Blood 07/12/2024 2:39 PM CDT 07/12/2024 8:54 PM CDT Truong Villeda MD LAB BLOOD ORDERABLE S Final Result Performing Organization Address City/[facility]/ZIP Co de Phone Number [facility] [address] [place] [address] * (ABNORMAL) Thyroid Function [place] (07/12/2024 2:39 PM CDT) Pathologist [facility] TSH 0.07(L) 0.30 - 4.20 mcIUnit/mL Blood 07/12/2024 2:39 PM CDT 07/12/2024 8:54 PM CDT Truong Villeda MD LAB BLOOD ORDERABLE S Final Result Performing Organization Address City/[facility] Co de Phone Number [facility] [address] [facility] [place] [address] * CBC with auto differential (07/12/2024 2:39 PM CDT) Pathologist [facility] WBC 7.1 3.8 - 9.9 K/cumm Hgb 13.8 11.9 - 15.5 g/dL [facility] Hct 42.7 35.6 - 45.5 % [facility] Plt 229 150 - 400 K/cumm [facility] MPV 10.0 9.1 - 12.3 fL [facility] RBC 4.74 3.90 - 5.20 M/cumm [facility] MCV 90.1 81.3 - 96.4 fL [facility] MCH 29.1 27.1 - 33.3 pg [facility] MCHC 32.3 32.3 - 35.7 g/dL [facility] RDW CV 13.5 11.1 - 14.9 % [facility] RDW SD 44.4 35.7 - 48.1 fL [facility] NRBC abs 0.00 0.00 - 0.01 K/cumm [facility] Blood 07/12/2024 2:39 PM CDT 07/12/2024 8:54 PM CDT Truong Villeda MD LAB BLOOD ORDERABLE S Final Result Performing Organization Address City/[facility]/ZIP Co de Phone Number [facility] [address] [place] [address] * (ABNORMAL) T4, free (07/12/2024 2:39 PM CDT) Free T4 1.83(H) 0.90 - 1.70 ng/dL Blood 07/12/2024 2:39 PM CDT 07/12/2024 9:50 PM CDT Truong Villeda MD LAB BLOOD ORDERABLE S Final Result Performing Organization Address City/[facility] Co de Phone Number [facility] [address] [place] [address] * Lipid panel (07/12/2024 2:39 PM CDT) [...] on 2017. Triglycerides 136 <=149 mg/dL [facility] Comment: Interpretive Data Ages < or = [...] on 2017. HDL 54 >=40 mg/dL [facility] Comment: Interpretive Data Ages < or = [...] 2017. LDL, calculated 94 <=129 mg/dL [facility] Comment: Interpretive Data Ages < or = [...] on 2023. Non-HDL Cholesterol 118 mg/dL [facility] Comment: Interpretive Data Ages < or = [...] 2:39 PM CDT 07/12/2024 8:54 PM CDT us Truong Villeda MD LAB BLOOD ORDERABLE S Final Result [facility] [address] Department [place] [address] * (ABNORMAL) Comprehensive metabolic panel (07/12/2024 2:39 [...] Glucose 172 70 - 199 mg/dL [facility] Comment: Interpretive Data Fasting glucose >/= 126 [...] CH Albumin 3.4(L) 3.5 - 5.0 g/dL [facility] CH Alk phos 93 40 - 130 Units/L [facility] CH ALT 16 7 - 45 Units/L [facility] CH AST 26 10 - 45 Units/L [facility] CH Blood 07/12/2024 2:39 PM CDT 07/12/2024 8:54 PM CDT Truong Villeda MD LAB BLOOD ORDERABLE S Final Result [facility] [address] Department [place] [address] * (ABNORMAL) POCT hemoglobin A1c (07/12/2024 1:53 [...] Albumin Creatinine Ratio, Urine (03/25/2022 10:44 AM CLOTH DYE RANGE OPERATOR) Albumin Ur <12.0 mg/L [facility] Comment: Interpretive Data No reference range established. Current interpretive data was last revised 2018. Creatinine Ur 42.8 mg/dL [facility] Comment: Interpretive Data No reference range established. Current interpretive data was last revised 2018. Albumin Creatinine Ratio, Ur <28 1 - 29 mg/g [facility] Urine 03/25/2022 10:4 4 AM CLOTH DYE RANGE OPERATOR 03/25/2022 3:51 PM CLOTH DYE RANGE OPERATOR Truong Villeda MD LAB URINE ORDERABLE S Final Result [facility] [address] Department of Laboratories [place] [phone] from Last 3 Months or Most Recently Relevant to Health Maintenance Insurance MEDICARE [facility] FOR LIFE MEDICARE FOR LIFE Care Teams Web Knitter Relationship Specialty Start Date End Date Jocy Moon MD PCP - General 02/12/07
[2024-09-28 12:08] LABS: Basophils Absolute Auto 0.1 K/mm3 (0.0-0.1); Basophils Percent Auto 0.9 % (0.2-1.2); Eosinophils Absolute Auto 0.1 K/mm3 (0-0.3); Eosinophils Percent Auto 1.9 % (0-4.4); Hematocrit 43.4 % (37.0-47.0); Hemoglobin 14.1 g/dL (12.0-15.0); Immature Granulocyte Absolute 0.03 K/mm3 (0.00-0.031); Immature Granulocyte Percent A 0.4 % (0-0.5); Lymphocytes Absolute Auto 2.05 K/mm3 (0.9-3.2); Lymphocytes Percent Auto 29.3 % (18.3-44.2); Mean Corpuscular HGB Conc 32.5 g/dl (32-36); Mean Corpuscular Hemoglobin 29.2 pg (26-34); Mean Corpuscular Volume 89.9 fl (80-100); Mean Platelet Volume 9.7 fl (7.4-10.4); Monocytes Absolute Auto 0.6 K/mm3 (0.1-0.6); Monocytes Percent Auto 8.7 % (2.6-8.5); Neutrophils Absolute Auto 4.1 K/mm3 (1.3-6.7); Neutrophils Percent Auto 58.8 % (45.5-73.1); Platelet Count Result 208 k/mm3 (150-375); Red Blood Count 4.83 M/mm3 (4.2-5.4); Red Cell Distribution Width 13.4 % (11.5-14.5)
[2024-09-28 12:49] LABS: Vitamin D 25 Hydroxy 35.3 ng/mL
[2024-09-28 13:03] LABS: Thyroid Stimulating Hormone Reflex 0.045 uIU/mL (0.465-4.68)
[2024-09-28 14:05] LABS: Alanine Aminotransferase 18 U/L (6-35); Alkaline Phosphatase 120 U/L (38-126); Anion Gap 7 mmol/L (4-12); Aspartate Amino Transferase 29 U/L (14-36); Bilirubin,Total 0.6 mg/dL (0.2-1.3); Blood Urea Nitrogen 20 mg/dL (7-17); Calcium 9.6 mg/dL (8.4-10.2); Carbon Dioxide 31 mmol/L (22-30); Chloride 101 mmol/L (98-107); Cholesterol 196 mg/dL (0-200); Estimated Glomerular Filt Rate > 60; Glucose 161 mg/dL (65-110); HDL Direct 51 mg/dL; Sodium 139 mmol/L (137-145); Total Protein 8.1 g/dL (6.3-8.2); Triglycerides 103 mg/dL (<150)
[2024-09-28 14:09] LABS: Free T4 Free Thyroxine Reflex 1.44 ng/dL (0.78-2.19)
[2024-09-28 14:16] LABS: LDL Cholesterol Direct 104 mg/dL
[2024-09-28 15:18] LABS: Total Triiodothyronine (T3) 0.91 NG/ML (0.82-1.58)
[2024-09-28 16:54] LABS: Hemoglobin A1C 7.8 % (<5.7)
== END 2024-09-28 11:31 | disposition home or self-care (01) ==
PROVIDERS: PCP Family Medicine; Visit Provider Family Medicine
DX: E53.8 Deficiency of other specified B group vitamins (principal); E55.9 Vitamin D deficiency, unspecified; E11.9 Type 2 diabetes mellitus without complications; E78.2 Mixed hyperlipidemia; R53.83 Other fatigue; E03.9 Hypothyroidism, unspecified
CPT/HCPCS: 36415; 80053; 80061; 82306; 82607; 83036; 84439; 84443; 84480; 85025

== ENCOUNTER 2025-01-10 08:54 | Outpatient (CLI) | payer MEDICARE, OTHER, SELFPAY ==
--- OUTSIDE RECORDS SUMMARY | 2025-01-10 09:32 | XMS_ITS | Encounter Summary ---
Author Organization [facility] Healthcare Address [address] [place] [address] Care Team Providers Care Tub Washer Name Role Phone Jocy Moon MD Primary Care Provider [phone] Encounter Details Date Type Department Care Team (Late st Contact Info) Description 01/08/2025 Results Follow-Up [facility] Diabetes and Endocrinology [address] [place] [phone] Rachel aP, AUTOMATIC CAR WASH ATTENDANT [address] [facility] [address] [place] [address] TSH, T4, free Social History Tobacco Use Types Packs/Day Years [...] on file Legal Sex Female 3:41 PM SOLUTION SPECIALIST Gender Identity Female 08/01/2023 7:51 AM CDT Sexual Orientation Straight 08/01/2023 7: 51 AM CDT documented as of this encounter Miscellaneous Notes * Result Encounter Note - Rachel Pa NP - 01/08/2025 8:35 AM CDT Donna Smith, [place] meeting you both yesterday! Your TSH has normalized (just back into range) but your T4 is still too high. I'd like for you to continue to take the Levothyroxine 150mcg Friday through Friday, but on Friday only take 1/2 a tab. This will average out to 139 mcg daily. I'd like for you to repeatyour labs in 3 months. I've entered the orders for any [facility] lab; if you need it go elsewhere just send me a message. Please call or send a Banjo message if any questions. Thank you, Rachel Pa, LALO-miranda documented in this encounter Plan of Treatment Scheduled Orders Name Type Priority Associated Diagnoses Orde r Schedule T4, free Lab Routine Acquired hypothyroidism Expected: 04/09/2025 (Approximate), Expires: 01/08/2026 TSH Lab Routine Acquired hypothyroidism Expected: 04/09/2025 (Approximate), Expires: 01/08/2026 documented as of this encounter Visit Diagnoses Diagnosis Acquired hypothyroidism- Primary Unspecified hypothyroidism documented in this encounter Care Teams Tub Washer Relationship Specialty Start Date End Date Jocy Moon MD PCP - General 02/12/07 documented as of this encounter
--- OUTSIDE RECORDS SUMMARY | 2025-01-10 09:32 | XMS_ITS | Clinical Summary ---
Author Organization [facility] [employer] Address [address] [place] [address] Care Team Providers Care Fbi Field Agent Name Role Phone Jocy Moon MD Primary Care Provider [phone] Source Comments [facility] [employer],non-owned Affiliates and Associated Physician Practices is amultiple site organization consisting of ambulatory clinics and hospital sitesin [place], [place], [place] and [place]. This disclosure is being madepursuant to the Care Everywhere program and may not contain all information available regarding this patient. Last updated 18.[facility] [employer] Allergies Active Allergy Reactions Criticality Noted Date [...] 08/18/19 19 Active vitamin D, ergocalciferol, (DRISDOL) 96103 units capsule Take 50,000 Units by mouth [...] 3 03/04/20 22 Active Sure Comfort Pen [place] 31G X 8 MM needleIndications: Neuropathy due [...] Plan (09/26/2020 2:10 PM CDT): - R bahai x3 - Given symptoms, we treated 3 [...] on file Legal Sex Female 5:19 PM CARDROOM MANAGER Gender Identity Not on file Sexual Orientation Not on file Last Filed Vital Signs Vital Sign Reading Time Taken Comments Blood Pressure 144/82 06/05/2021 11:25 AM CARDROOM MANAGER Pulse 58 06/05/2021 11:25 AM CARDROOM MANAGER Temperature 36.6 C (97.8 F) 06/05/2021 11:25 AM CARDROOM MANAGER Respiratory Rate 12 02/12/2017 1:34 PM CDT Oxygen Saturation 96% 06/05/2021 11:25 AM CARDROOM MANAGER Inhaled Oxygen Concentration - - Weight 121.1 kg (267 lb) 06/05/2021 11:25 AM CARDROOM MANAGER Height 152.4 cm (5') 06/05/2021 11:25 AM CARDROOM MANAGER Body Mass Index 52.14 06/05/2021 11:25 AM CARDROOM MANAGER Plan of Treatment Health Maintenance Due Date [...] 09/02/2021 06/05/2021, 06/2019, 02/23/2019, Additional history exists DEPRESSION SCREENING 04/28/2024 DIABETES - URINE PROTEIN SCREENING 04/28/2024 COVID-19 VACCINE ( season) 2024 02/20/2021, 07/19/2020, 06/21/2020 INFLUENZA VACCINE (#1) 2024 , 01/25/2020, 01/25/2019, Additional history exists DTAP/TDAP/TD VACCINES [...] to Health Maintenance Insurance MEDICARE Care Teams Fbi Field Agent Relationship Specialty Start Date End Date Jocy Moon MD [address] [place] [address] PCP - General 03/02/08
--- OUTSIDE RECORDS SUMMARY | 2025-01-10 09:32 | XMS_ITS | Clinical Summary ---
Author Organization [facility] [address] Address [address] [place] [address] Care Team Providers Care Organizational Research Consultant Name Role Phone Jocy Moon MD Primary Care Provider [phone] Allergies Active Allergy Reactions Criticality Noted Date Comments Tor Inhibitors Unknown Low 02/27/2015 Makes her sick, Makes her sick, Makes her sick Codeine Levofloxacin Unknown 08/22/2023 Pioglitazone Unknown 08/22/2023 Medications ALPRAZolam (XANAX) 0.25 mg tablet Take 1 tablet (0.25 mg total) by mouth as needed 09/21/19 20 Active Lumigan 0.01 % ophthalmic drops 03/22/20 22 Active cyanocobalamin (Vitamin B-12) 1,000 mcg/mL injection 03/02/20 22 Active ergocalciferol (VITAMIN D) 50,000 unit capsule 03/02/20 22 Active metoprolol XL (TOPROL-XL) 100 mg 24 hr tablet 03/02/[address] (PROTONIX) 40 mg EC tablet 03/02/20 22 Active Sure Comfort Pen Needle 31 gauge x 5/16 needle 03/02/20 22 Active pregabalin (LYRICA) 75 mg capsule 01/12/20 22 Active Monoject Syringe 3 mL 22 gauge x 1 syringe 03/02/20 22 Active mirtazapine (REMERON) 15 mg tablet TAKE 1/2 TO 1 TABLET BY MOUTH EVERY NIGHT AT BEDTIME 07/03/19 22 Active potassium chloride ER 10 mEq CR capsule 02/12/20 23 Active furosemide (LASIX) 20 mg tablet Take 1 tablet (20 mg total) by mouth 2 (two) times a day Active HYDROcodone-acetam inophen (NORCO) 5-325 mg per tablet Take 1 tablet by mouth every 4 (four) hours as needed for pain 05/14/19 Active dulaglutide (Trulicity) 4.5 mg/0.5 mL pen injectorIndication s:Type 2 diabetes mellitus with diabetic polyneuropathy, with long-term current use of insulin (HCC) Inject 0.5 mL (4.5 mg total) under the skin once a week 6 mL 07/13/19 026 Active insulin aspart protamine-insulin aspart 70/30 (NovoLOG [...] by mouth daily 30 tablet 07/20/19 Active acetaminophen-aspi rin-caffeine (EXCEDRIN MIGRAINE) 250-250-65 mg per tablet daily 12/28/[address] (VOLTAREN) 25 mg EC tablet .COMPLEX 06/21/19 23 Active triamcinolone (KENALOG) 0.1 % cream APPLY 1 APPLICATION TOPICALLY TWICE DAILY 12/07/19 25 Active timolol maleate/bimatopros t/PF (timoloL-bimatopro st, PF,) 0.5-0.01 % drops daily 12/28/19 20 Active triamcinolone (KENALOG) 0.025 % cream 2 (two) times a day 08/31/19 24 Active miscellaneous medical supply misc .MEDSUPPLY 05/30/19 24 Active potassium chloride/D5-0.2%Na Cl (dextrose 5% and sodium chloride 0.2 % with KCl 10 mEq/L) 10 mEq/L 1,000 mL (10 mEq total) 07/30/19 24 Active traMADoL 5 mg/mL solution 50 mg 07/02/19 24 Active syringe with needle, safety 3 mL 22 gauge x 1 2 syringe 06/21/19 23 Active timolol (TIMOPTIC) 0.5 % ophthalmic solution 01/12/20 025 Discontinu ed(No longer taking - Do not display on AVS) mupirocin (BACTROBAN) 2 % ointment Apply topically 3 (three) times a day 10/03/19 22 025 Discontinu ed(No longer taking - Do not display on AVS) furosemide 10 mg/mL syringe 20 mg 02/12/20 23 025 Discontinu ed(No longer taking - Do not display on AVS) Active Problems Problem Noted Date Diagnosed Date Hypertension associated with type 2 diabetes iraida litus 01/07/2025 Assessment & Plan (01/07/2025 11:30 AM CDT): Chronic problem. Controlled on current metoprolol XL 100mg daily, lasix 20mg daily Morbid obesity with BMI of 45.0-49.9, adult [...] due to type 2 diabetes mellitus 02/12 Assessment & Plan (01/07/2025 11:31 AM CDT): Chronic problem. Currently taking Lyrica 75 mg tid. Reviewed foot care; needs to lotion daily. Aware to check feet nightly, not to go barefoot. 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 Clinically & biochemically euthyroid. Levothyroxine decreased from 175 to 150 mcg 07/14/24; has not yet repeated labs. Aware to take 1st thing in morning, 30-60 minutes before food/drink/other medications. Will update labs. Verified that she uses mychart. Aware to check results/results letter in [employer]. Will contact by phone if needed. Assessment & Plan (01/19/2024 11:03 AM CDT): [...] daily Assessment & Plan (03/25/2022 10:40 AM PROFESSOR OF LATIN AMERICAN STUDIES): Pt currently on Levoxyl 200 mcg oral [...] patient Last Assessment & Plan: - R scientologist x3 - Given symptoms, we treated 3 ISKs with cryo. See proc note Type 2 diabetes mellitus wit h diabetic polyneuropathy, with long-term current use of insulin 11/16/2008 Overview (07/31/2016): DMII WO CMP UNCNTRLD Assessment & Plan (01/07/2025 11:45 AM CDT): Chronic problem. A1c not at goal & worsened from 8.0% 07/12/24 to now 8.3%. -decrease dinner dose from 35 to 30 (if over 200; decrease 40 to 35 units) Current medications: Trulicity 4.5mg weekly Novolog 70/30 taking 30-35 units with lunch, 30 units with dinner With lunch if BG over 200: 40 units With dinner if BG over 200: takes 35 units UTD on DM eye exam (01/22/24 mild NPDR OD, mod NPDR OS [facility]) Will update labs. Verified that she uses mychart. Aware to check results/results letter in [employer]. Will contact by phone if needed. Discussed with Sarah Giraldo: Strive for regular exercise (30min most days) and diet (get at least 4-5 servings of fruit and veggies daily, avoid processed foods, increase lean protein intake and decrease carb portions as well as fruit juices, regular soda & desserts). Watch carbs and simple sugars. Check the blood sugar: Freestyle karen 3. Check the feet daily for skin breakdown and infection. Chronic problem. Currently taking Lyrica 75 mg tid. Reviewed foot care; needs to lotion daily. Aware to check feet nightly, not to go barefoot. Assessment & Plan (01/19/2024 11:02 AM CDT): Chronic, complicated by overnight hypoglycemia A1c 7.6% Reviewed freestyle Karen download Noted postprandial hyperglycemia during daytime and [...] 7.7% Goal to avoid hypoglycemia Reviewed freestyle Karen download Noted postprandial hyperglycemia after lunch and dinner and overnight occasional low blood sugar - take 10 units less insulin with dinner and rest all treatment remain the same - continue current dose of Trulicity Upgrade to Freestyle karen 3 sensor Assessment & Plan (02/11/2023 10:38 [...] copy daily foot care Keep following with Flatwork Finisher Hand Upgrade Africasana karen to 3 version - sent in script Follow Up in 6 months Assessment & Plan (03/25/2022 10:40 AM PROFESSOR OF LATIN AMERICAN STUDIES): Chronic, Overall fair controlled for pt age [...] exercise Assessment & Plan (03/25/2022 10:40 AM PROFESSOR OF LATIN AMERICAN STUDIES): counseled on diet and exercise Encounters Date Type Department Care Team Description 01/08/2025 Results Follow-Up [facility] Diabetes and Endocrinology [address] [place] [phone] Rachel Pa, MOTOR VEHICLE CLERK TSH, T4, free 01/07/2025 12:10 PM CDT Lab [address] [address] Acquired hypothyroidism; Type 2 diabetes mellitus with diabetic polyneuropathy, with long-term current use of insulin (HCC) 01/07/2025 11:00 AM CDT Office Visit [facility] Diabetes and Endocrinology [address] [place] [phone] Rachel Pa, MOTOR VEHICLE CLERK Type 2 diabetes mellitus with diabetic polyneuropathy, with long-term current use of insulin (HCC) (Primary Dx); Hypertension associated with type 2 diabetes mellitus (HCC); Neuropathy due to type 2 diabetes mellitus (HCC); Acquired hypothyroidism from Last 3 Months Immunizations Immunization Administration [...] on file Legal Sex Female 3:41 PM PROFESSOR OF LATIN AMERICAN STUDIES Gender Identity Female 08/01/2023 7:51 AM CDT Sexual Orientation Straight 08/01/2023 7: 51 AM CDT Obstetrics History Last Filed Vital Signs Vital Sign Reading Time Taken Comments Blood Pressure 134/80 01/07/2025 10:48 AM CDT Pulse 74 01/07/2025 10:48 AM CDT Temperature - - Respiratory Rate 18 01/07/2025 10:4 8 AM CDT Oxygen Saturation - - Inhaled Oxygen Concentration - - Weight 114.9 kg (253 lb 3.2 oz) 023 10:31 AM CDT Height 152.4 cm (5') 01/07/2025 10:48 AM CDT Body Mass Index 49.45 07/29/2022 10:31 AM CDT Plan of Treatment Health Maintenance Due Date Last Done Comments Osteoporosis Screening-Bone Density Scan 1943 Hepatitis B Screening 1961 Pneumococcal vaccine 65+ (1 of 2 - PCV) 1962 Zoster Vaccine (1 of 2) 1993 Well Visit 65+ 2008 Albumin Creatinine Ratio, Urine 03/25/2023 Depression Screening 08/20/2024 08/21/2023 Covid-19 Vaccine (2024-2 6 season) 2024 02/20/2021, 07/19/2020, 06/21/2020 Influenza Vaccine (#1) 2024 , 01/19/2021, 01/25/2020, Additional history exists Fall Risk Assessment 01/18/2025 01/19/2024, 08/21/19 24 Dilated Eye Exam 01/21/2025 01/22/2024, 06/26/2022 Hemoglobin A1C 07/07/2025 01/07/2025, 06/26, 01/19/2024, Additional history exists Lipid Panel 07/12/2025 07/12/2024, 12/28, 02/10/2023, Additional history exists eGFR 07/12/2025 07/12/2024, 12/28, 02/10/2023, Additional history exists Foot Exam 01/07/2026 01/07/2025, 12/28, 08/21/2023, Additional history exists DTaP/Tdap/Td Vaccine (2 - Td or Tdap) 10/01/2027 09/30/2017 Procedures Procedure Name Priority Date/Time Associated Diagnosis Comments T4, FREE Routine 01/07/2025 12:26 PM CDT Acquired hypothyroidism TSH Routine 01/07/2025 12:26 PM CDT Acquired hypothyroidism POCT HEMOGLOBIN A1C Routine 01/07/2025 1 1:07 AM CDT Type 2 diabetes mellitus with diabetic polyneuropathy, with long-term current use of insulin (HCC) POCT GLUCOSE Routine 01/07/2025 10:55 AM CDT Type 2 diabetes mellitus with diabetic polyneuropathy, with long-term current use of insulin (HCC) EGFR Routine 07/12/2024 2:39 PM CDT Type 2 diabetes mellitus with diabetic polyneuropathy, with long-term current use of insulin (HCC) LIPID PANEL Routine 07/12/2024 2:39 PM CDT Type 2 diabetes mellitus with diabetic polyneuropathy, with long-term current use of insulin (HCC) HM DIABETES EYE EXAM Routine 01/22/2024 ALBUMIN CREATININE RATIO, URINE Routine 03/25/2022 10:44 AM PROFESSOR OF LATIN AMERICAN STUDIES Type 2 diabetes mellitus with diabetic polyneuropathy, with long-term current use of insulin (HCC) from Last 3 Months or Most Recently Relevant to Health Maintenance Results * TSH (01/07/2025 12:26 PM CDT) Thyroid Stimulating Hormone 0.32 0.30 - 4.20 mcIUnit/mL Blood 01/07/2025 12:2 6 PM CDT 01/07/2025 2:34 PM CDT Rachel Pa NP LAB BLOOD ORDERABLES Meme l Result [facility] [address] [facility] [place] [address] * (ABNORMAL) T4, free (01/07/2025 12:26 PM CDT) Free T4 1.99(H) 0.90 - 1.70 ng/dL Blood 01/07/2025 12:2 6 PM CDT 01/07/2025 2:34 PM CDT us Rachel Pa MOTOR VEHICLE CLERK LAB BLOOD ORDERABLES Meme l Result [facility] [address] [facility] [place] [address] * (ABNORMAL) POCT hemoglobin A1c (01/07/2025 11:07 AM CDT) Hemoglobin A1C, POC 8.3(A) 4.0 - 5.6 % Blood 01/07/2025 11:0 7 AM CDT us Rachel Pa NP POINT OF CARE TEST ORDERA BLES Final Result * POCT glucose (01/07/2025 10:55 AM CDT) Glucose Blood, POC 140 Normal Fasting 70 - 100, Random <200 mg/dL Blood 01/07/2025 10:5 5 AM CDT us Rachel Pa MOTOR VEHICLE CLERK POINT OF CARE TEST ORDERA BLES Final Result * eGFR (07/12/2024 2:39 PM CDT) eGFR [...] BLOOD ORDERABLE S Final Result [facility] [address] Department [place] [address] * Lipid panel (07/12/2024 2:39 PM CDT) [...] NCEP Expert Panel. Circulation 2004;110:227 3. Earl Wilson et al. FELICITY Cardiol. 2019August 26;5(5):540-548. doi: 10.1001/jamacardio.2020.0013 Current Interpretive Data was [...] last revised on 2017. Chol/HDL ratio 3 [facility] Blood 07/12/2024 2:39 PM CDT 07/12/2024 8:54 PM CDT Truong Villeda MD LAB BLOOD ORDERABLE S Final Result Performing Organization Address [facility]/ZIP Co de Phone Number [facility] [address] Department [place] [address] * (ABNORMAL) DIABETES EYE EXAM (01/22/2024) SCRIBED DIABETIC DILATED EYE EXAM Abnormal 01/22/2024 Ariana Provider HEALTH MAINTENANCE Edited Result - Final * Albumin Creatinine Ratio, Urine (03/25/2022 10:44 AM PROFESSOR OF LATIN AMERICAN STUDIES) Albumin Ur <12.0 mg/L [facility] Comment: Interpretive Data No reference range established. Current interpretive data was last revised 2018. Creatinine Ur 42.8 mg/dL [facility] Comment: Interpretive Data No reference range established. Current interpretive data was last revised 2018. Albumin Creatinine Ratio, Ur <28 1 - 29 mg/g [facility] Urine 03/25/2022 10:4 4 AM PROFESSOR OF LATIN AMERICAN STUDIES 03/25/2022 3:51 PM PROFESSOR OF LATIN AMERICAN STUDIES Truong Villeda MD LAB URINE ORDERABLE S Final Result Performing Organization Address [facility] Co de Phone Number [facility] [address] Department [place] [address] from Last 3 Months or Most Recently Relevant to Health Maintenance Insurance MEDICARE FOR LIFE MEDICARE FOR LIFE Care Teams Organizational Research Consultant Relationship Specialty Start Date End Date Jocy Moon MD PCP - General 02/12/07
[2025-01-10 09:46] LABS: Hemoglobin A1C 7.6 % (<5.7)
[2025-01-10 09:57] LABS: Alanine Aminotransferase 16 U/L (6-35); Albumin Level 3.6 g/dL (3.5-5.1); Alkaline Phosphatase 93 U/L (38-126); Anion Gap 6 mmol/L (4-12); Aspartate Amino Transferase 26 U/L (14-36); Bilirubin,Total 0.5 mg/dL (0.2-1.3); Blood Urea Nitrogen 20 mg/dL (7-17); Calcium 9.0 mg/dL (8.4-10.2); Carbon Dioxide 28 mmol/L (22-30); Chloride 103 mmol/L (98-107); Estimated Glomerular Filt Rate 56; Glucose 93 mg/dL (65-110); Potassium 4.0 mmol/L (3.4-5.0); Sodium 137 mmol/L (137-145); Total Protein 7.4 g/dL (6.3-8.2)
[2025-01-10 10:30] LABS: Thyroid Stimulating Hormone Reflex < 0.015 uIU/mL (0.465-4.68)
[2025-01-10 10:51] LABS: Vitamin B12 958.0 pg/mL (239-931)
[2025-01-10 12:30] LABS: Free T4 Free Thyroxine Reflex 2.23 ng/dL (0.78-2.19)
== END 2025-01-10 08:55 | disposition home or self-care (01) ==
PROVIDERS: PCP Family Medicine; Visit Provider Family Medicine
DX: E03.9 Hypothyroidism, unspecified (principal); E11.9 Type 2 diabetes mellitus without complications; E53.8 Deficiency of other specified B group vitamins
CPT/HCPCS: 36415; 80053; 82607; 83036; 84439; 84443

== ENCOUNTER 2025-03-25 09:29 | Emergency (ER) | payer MEDICARE, OTHER, SELFPAY ==
--- NOTE | ~2025-03-25 | XR_ITS ---
XR chest 2V 03/25/2025 10:55 Indication: Shortness of breath Procedure: 2 view chest Comparison: Comparison to multiple prior studies sequentially, with oldest reviewed study dated 09/27/2008. Findings: Cardiomegaly with pulmonary edema. No significant effusion or pneumothorax. There are changes of bilateral clavicular osteotomy. No acute osseous abnormality. There are cholecystectomy clips. Impression: 1: Cardiomegaly with pulmonary edema. Reviewed, dictated and finalized at location I. IDE GRINDER Impression: 1: Cardiomegaly with pulmonary edema.
--- NOTE | ~2025-03-25 | CT_ITS ---
CTA CHEST CLINICAL HISTORY: shortness of breath, elevated d. dimer . COMPARISON: Chest x-rays today TECHNIQUE: Helical CTA performed from thoracic inlet to upper abdomen IV contrast information not listed in PACS Coronal, sagittal reformats. Multiplanar MIPS CT images acquired with automatic exposure control for dose reduction DLP: 922 mGy-cm FINDINGS: Pulmonary arteries: No PE. Thoracic Aorta: No dissection or aneurysm. Heart/pericardium: Coronary artery calcification. RV/LV ratio: Normal. Lungs/Pleura: Small right and trace left pleural effusions. Mild interlobular septal thickening. Scattered foci subtle bilateral airspace disease. Tracheobronchial tree: Patent. Nodes: No enlarged nodes. Bones: No acute bony abnormality. Soft tissues: Unremarkable. Visualized upper abdomen: Hepatomegaly, with steatosis, and probable cirrhosis. Cholecystectomy. Right renal cyst. Pancreatic atrophy. Small hiatal hernia. IMPRESSION: 1. No PE. 2. Small pleural effusions and minimal interstitial pulmonary edema. 3. Small bilateral additional foci of alveolar pulmonary edema and/or airspace disease. Reviewed, dictated and finalized at location R. NTION OFFICER
--- OUTSIDE RECORDS SUMMARY | 2025-03-25 09:33 | XMS_ITS | Clinical Summary ---
Author Organization [facility] [address] Address [address] [place] [address] Care Team Providers Care Mill Tender Second Operator Name Role Phone Jocy Moon MD Primary Care Provider [phone] Tacho White MD Unavailable [phone] Allergies Active Allergy Reactions Criticality Noted Date [...] Sure Comfort Pen Needle 31 gauge x 16 needle 03/02/20 22 Active pregabalin (LYRICA) 75 [...] MIGRAINE) 250-250-65 mg per tablet daily 12/28/[address] (VOLTAREN) 25 mg EC [...] safety 3 mL 22 gauge x 1 04/29 syringe 06/21/19 23 Active Active Problems Problem Noted Date [...] Will update labs. Verified that she uses [employer]. Aware to check results/results letter in [employer]. Will contact by phone if needed. Assessment [...] daily Assessment & Plan (03/25/2022 10:40 AM COTTON JAMMER): Pt currently on Levoxyl 200 mcg oral [...] patient Last Assessment & Plan: - R adventist x3 - Given symptoms, we treated 3 [...] (01/22/24 mild NPDR OD, mod NPDR OS [facility]) Will update labs. Verified that she uses mychart. Aware to check results/results letter in [employer]. Will contact by phone if needed. Discussed [...] copy daily foot care Keep following with Net C Developer Upgrade FreestLiveBid karen to 3 version - sent in script Follow Up in 6 months Assessment & Plan (03/25/2022 10:40 AM COTTON JAMMER): Chronic, Overall fair controlled for pt age [...] exercise Assessment & Plan (03/25/2022 10:40 AM COTTON JAMMER): counseled on diet and exercise Encounters Date Type Department Care Team Description 2025 Orders Only [facility] [address] [phone] ProviderAriana MD 02/11/[address] [facility] Diabetes and Endocrinology [address] [place] [phone] Truong Gardner MD request to patient for yearly eye exam 01/17/2025 Telephone [facility] [address] [phone] Truong Gardner MD Total medical supply 01/08/2025 Results Follow-Up [facility] Diabetes [facility] Endocrinology [address] [place] [phone] Rachel Pa NP TSH, T4, free 01/07/2025 12:10 PM CDT Lab [address] [address] Acquired hypothyroidism; Type 2 diabetes mellitus with diabetic polyneuropathy, with long-term current use of insulin (HCC) 01/07/2025 11:00 AM CDT Office Visit [facility] Diabetes and Endocrinology [address] [place] [phone] Rachel Pa, HOOP ROLLS OPERATOR Type 2 diabetes mellitus with diabetic [...] History Medical History Date Comments Diabetes mellitus Diabetes Hypertension Hypertension Disorder of thyroid Thyroid [...] on file Legal Sex Female 3:41 PM COTTON JAMMER Gender Identity Female 08/01/2023 7:51 AM CDT [...] 65+ 2008 Albumin Creatinine Ratio, Urine 03/25/2023 2 Depression Screening 08/20/2024 08/21/2023 Covid-19 Vaccine (4 - 2024-2 6 season) 2024 02/20/2021, 07/19/2020, 06/21/2020 Influenza Vaccine (#1) 2024 , 01/19/2021, 01/25/2020, Additional history exists Fall Risk Assessment 01/18/2025 01/19/2024, 08/21/19 24 Hemoglobin A1C 07/07/2025 01/07/2025, 06/26, 01/19/2024, Additional history exists Lipid Panel 07/12/2025 07/12/2024, 12/28, 02/10/2023, Additional history exists eGFR 07/12/2025 07/12/2024, 12/28, 02/10/2023, Additional history exists Dilated Eye Exam 12/17/2025 12/17/2024, , 06/26/2022 Foot Exam 01/07/2026 01/07/2025, 12/28, 08/21/2023, Additional [...] insulin (HCC) HM DIABETES EYE EXAM Routine 12/17/2024 EGFR Routine 07/12/2024 2:39 PM CDT Type 2 diabetes mellitus with diabetic polyneuropathy, with long-term current use of insulin (HCC) LIPID PANEL Routine 07/12/2024 2:39 PM CDT Type 2 diabetes mellitus with diabetic polyneuropathy, with long-term current use of insulin (HCC) ALBUMIN CREATININE RATIO, URINE Routine 03/25/2022 10:44 AM COTTON JAMMER Type 2 diabetes mellitus with diabetic polyneuropathy, with long-term current use of insulin (HCC) from Last 3 Months or Most Recently Relevant to Health Maintenance Results * TSH (01/07/2025 12:26 PM CDT) Pathologist [facility] Thyroid Stimulating Hormone 0.32 0.30 - 4.20 mcIUnit/mL Blood 01/07/2025 12:2 6 PM CDT 01/07/2025 2:34 PM CDT us Rachel Pa NP LAB BLOOD ORDERABLES Meme brown Result [facility] [address] [facility] Department [place] [address] * (ABNORMAL) T4, free (01/07/2025 12:26 PM CDT) Free T4 1.99(H) 0.90 - 1.70 ng/dL Blood 01/07/2025 12:2 6 PM CDT 01/07/2025 2:34 PM CDT us Rachel Pa HOOP ROLLS OPERATOR LAB BLOOD ORDERABLES Meme l Result [facility] Department [place] [address] * (ABNORMAL) POCT hemoglobin A1c (01/07/2025 11:07 AM CDT) [facility] Hemoglobin A1C, POC 8.3(A) 4.0 - 5.6 % Blood 01/07/2025 11:0 7 AM CDT us Rachel Pa HOOP ROLLS OPERATOR POINT OF CARE TEST ORDERA BLES Final Result * POCT glucose (01/07/2025 10:55 AM CDT) [facility] Glucose Blood, POC 140 Normal Fasting 70 - 100, Random <200 mg/dL Blood 01/07/2025 10:5 5 AM CDT us Rachel Pa HOOP ROLLS OPERATOR POINT OF CARE TEST ORDERA BLES Final Result * (ABNORMAL) DIABETES EYE EXAM (12/17/2024) 12/17/2024 us Historical Provider HEALTH MAINTENANCE Edited Result - Final * eGFR (07/12/2024 2:39 PM CDT) [facility] eGFR 60 >=60 mL/min/1. 73 m2 Comment: [...] PM CDT 07/12/2024 9:50 PM CDT us Supraja Ronal Villeda MD LAB BLOOD ORDERABLE S Final Result [facility]VARE[facility] [address] Department [place] [address] * Lipid panel (07/12/2024 2:39 PM CDT) [...] NCEP Expert Panel. Circulation 2004;110:227 3. Earl Vazquez. FELICITY Cardiol. 2019August 26;5(5):540-548. doi: 10.1001/[email or web address].2020.0013 Current [...] last revised on 2017. Chol/HDL ratio 3 [facility] Blood 07/12/2024 2:39 PM CDT 07/12/2024 8:54 PM CDT Truong Villeda MD LAB BLOOD ORDERABLE S Final Result Performing Organization Address [facility] Co de Phone Number [facility] [address] [place] [address] * Albumin Creatinine Ratio, Urine (03/25/2022 10:44 AM COTTON JAMMER) Albumin Ur <12.0 mg/L [facility] Comment: Interpretive Data No reference range established. Current interpretive data was last revised 2018. Creatinine Ur 42.8 mg/dL [facility] Comment: Interpretive Data No reference range established. Current interpretive data was last revised 2018. Albumin Creatinine Ratio, Ur <28 1 - 29 mg/g [facility] Urine 03/25/2022 10:4 4 AM COTTON JAMMER 03/25/2022 3:51 PM COTTON JAMMER Truong Villeda MD LAB URINE ORDERABLE S Final Result Performing Organization Address [facility] Co de Phone Number [facility] [address] [place] [address] from Last 3 Months or Most Recently Relevant to Health Maintenance Insurance MEDICARE FOR LIFE MEDICARE FOR LIFE Care Teams Mill Tender Second Operator Relationship Specialty Start Date End Date Jocy Moon MD PCP - General 02/12/07 Tacho White MD [address] [place] [address] Referring Physician Ophthalmology 01/13/25
--- OUTSIDE RECORDS SUMMARY | 2025-03-25 09:33 | XMS_ITS | Clinical Summary ---
Author Organization [facility] [employer] Address [address] [place] [address] Care Team Providers Care Asphalt Patcher Name Role Phone Jocy Moon MD Primary Care Provider Source Comments [facility] [employer],non-owned Affiliates and Associated Physician Practices is amultiple site organization consisting of ambulatory clinics and hospital sitesin [place], [place], [place]. This disclosure is being madepursuant to the Care Everywhere program and may not contain all information available regarding this patient. Last updated 18.[facility] [employer] Allergies Active Allergy Reactions Criticality Noted Date [...] 08/18/19 19 Active vitamin D, ergocalciferol, (DRISDOL) 52632 units capsule Take 50,000 Units by mouth [...] 3 03/04/20 22 Active Sure Comfort Pen [place] 31G X 8 MM needleIndications: Neuropathy due [...] Plan (09/26/2020 2:10 PM CDT): - R faith x3 - Given symptoms, we treated 3 [...] on file Legal Sex Female 5:19 PM INTEGRATED LOGISTICS OPERATIONS MANAGER Gender Identity Not on file Sexual Orientation Not on file Last Filed Vital Signs Vital Sign Reading Time Taken Comments Blood Pressure 144/82 06/05/2021 11:25 AM INTEGRATED LOGISTICS OPERATIONS MANAGER Pulse 58 06/05/2021 11:25 AM INTEGRATED LOGISTICS OPERATIONS MANAGER Temperature 36.6 C (97.8 F) 06/05/2021 11:25 AM INTEGRATED LOGISTICS OPERATIONS MANAGER Respiratory Rate 12 02/12/2017 1:34 PM CDT Oxygen Saturation 96% 06/05/2021 11:25 AM INTEGRATED LOGISTICS OPERATIONS MANAGER Inhaled Oxygen Concentration - - Weight 121.1 kg (267 lb) 06/05/2021 11:25 AM INTEGRATED LOGISTICS OPERATIONS MANAGER Height 152.4 cm (5') 06/05/2021 11:25 AM INTEGRATED LOGISTICS OPERATIONS MANAGER Body Mass Index 52.14 06/05/2021 11:25 AM INTEGRATED LOGISTICS OPERATIONS MANAGER Plan of Treatment Health Maintenance Due Date Last Done Comments BONE DENSITY TESTING 1945 MEDICARE AWV 12 MONTHS 1943 DIABETES-SERUM CREATININE 1961 PNEUMOCOCCAL VACCINE 50+ (1 of 2 - PCV) 1962 ZOSTER VACCINE (1 of 2) 1993 DIABETES [...] to Health Maintenance Insurance MEDICARE Care Teams Asphalt Patcher Relationship Specialty Start Date End Date Jocy Moon MD [address] [place] [address] PCP - General 03/02/08
[2025-03-25 09:34] VITALS: BP 164/77; PULSE 85; RESP 18; TEMP 36.7; O2SAT 95
[2025-03-25 09:41] VITALS: O2SAT 100
--- NOTE | 2025-03-25 09:55 | ED.SOB ---
HPI - SOB/Dyspnea General Chief Complaint: Shortness of Breath/Dyspnea Stated Complaint: SOB, retaining fluid sent by PCP Time Seen by Provider: 03/25/25 09:32 History of Present Illness HPI Narrative: Patient is an 80-year-old female who presents to the ER with shortness of breath with exertion. She reports she was evaluated by her primary care provider approximately 2 weeks ago due to sores on her abdomen. Patient reports her PCP put her on yeast powder and oral antibiotics. She and her reports the medication helped improve her symptoms but sores are still present. One patient's contacted their primary care provider this morning and mentioned patient has increased shortness of breath, their PCP advised patient come into the ER for further evaluation. Patient endorses a history of congestive heart failure and takes a water pill. She also endorses a history of lymphedema, abnormal thyroid levels, diabetes, and neuropathy. Patient denies any chest pain, back pain, lower extremity pain, abdominal pain, or lower extremity wounds. Related Data Home Medications ?Medication ?Instructions ?Recorded ?Confirmed ?Last Taken ?Type bimatoprost 0.01 % eye drops 1 drop ophthalmic (eye) QPM 12/27/19 03/09/25 Unknown History (Tayla) aspirin 81 mg chewable tablet 81 mg PO DAILY 12/28/19 03/09/25 Unknown History Allergies Allergy/AdvReac Type Severity Reaction Status Date / Time codeine Allergy Intermediate SICK Verified 03/09/25 15:37 levofloxacin Allergy Unknown Unknown Verified 03/09/25 15:37 pioglitazone Allergy Unknown Unknown Verified 03/09/25 15:37 Review of Systems Review of Systems: All systems reviewed & are unremarkable except as noted in HPI and below PMFSH Past Medical History Medical History Weakness Insomnia Exercise intolerance Lymphedema of both lower extremities Arthritis Skin cancer Constipation Sleep apnea Dizziness Chronic headaches Sleep apnea, obstructive Carpal tunnel syndrome of right wrist Vitamin D deficiency Hypothyroidism Vitamin B12 deficiency Hypertension Diabetes mellitus Diabetic neuropathy associated with diabetes mellitus due to underlying condition Surgical History Surgical History H/O rotator cuff surgery S/P cataract surgery H/O hysterectomy for benign disease S/P cholecystectomy Family History Family History Father Brain cancer Mother Uterine cancer Lung cancer Sibling Lung cancer Sibling Multiple sclerosis Mother Family history of osteoporosis Family history of anemia Family history of arthritis Family history of lung cancer Family history of heart disease in male family member before age 55 Family history of malignant neoplasm of uterus Grandparent Family history of osteoporosis Family history of anemia Family history of arthritis Family history of heart disease in male family member before age 55 Sibling Family history of multiple sclerosis Father Family history of malignant neoplasm of brain Social History Social History Smoking status: Never smoker Second hand tobacco smoke exposure: No Alcohol intake: current Substance use: never Substance use type: does not use Lack of Transportation: No Lack of Food: Never True Current Housing: I Have Housing Concerned About Future Housing: No Difficulty Paying Gas/Electric Bills: No Difficulty Paying for Meds: No Currently Unemployed: No Education: High School Diploma/GED Difficulty w/ Childcare or Family Care: No Living arrangements: with family Occupation/Education: retired Gender identity (if verbalized by the patient): Female Sexual Orientation (if Verbalized by the Patient): Straight or Heterosexual Spiritual care concerns: No Agree to blood products: No Exam Narrative: GENERAL: Well appearing, obese, non-toxic, in no acute distress. HEAD: Normocephalic, atraumatic. NECK: Supple. No adenopathy, no masses. RESPIRATORY: Airway patent, respirations nonlabored. Clear to auscultation bilaterally, no rales, rhonchi, wheezing. CARDIOVASCULAR: Regular rate and rhythm without murmurs, rubs, or gallops. Peripheral pulses 2+ and equal bilaterally. 3+ pitting edema bilateral lower extremities ABDOMINAL: Soft, nontender, nondistended, no hepatosplenomegaly. Normoactive BS. MUSCULOSKELETAL: Moves all extremities. Strength/ROM intact without gross deformities. SKIN: Warm, dry, normal color. No rashes. Approximately six 1 inch in diameter ulcerations to skin folds in right and left lower abdomen with surrounding erythema, clear drainage from ulcers. A few erythematous satellite lesions. NEURO: A&O X3. Speech clear. Cranial nerves II-XII intact. No ataxic movements. PSYCHIATRIC: Appropriate mood and affect. Normal interaction. Course Vital Signs Vital signs: Vital Signs Temperature 36.7 C 03/25/25 09:34 Pulse Rate 85 03/25/25 09:34 Respiratory Rate 18 03/25/25 09:34 Blood Pressure 164/77 H 03/25/25 09:34 Pulse Oximetry 95 03/25/25 09:34 Temperature 36.7 C 03/25/25 09:34 Pulse Rate 74 03/25/25 12:45 Respiratory Rate 18 03/25/25 12:45 Blood Pressure 164/77 H 03/25/25 09:34 Pulse Oximetry 99 03/25/25 12:45 Oxygen Delivery Room Air 03/25/25 09:41 MDM - SOB/Dyspnea MDM Narrative Medical decision making narrative: Patient is an 80-year-old female who presents to the ER with shortness of breath with exertion. She reports she was evaluated by her primary care provider approximately 2 weeks ago due to sores on her abdomen. Patient reports her PCP put her on yeast powder and oral antibiotics. She and her reports the medication helped improve her symptoms but sores are still present. One patient's contacted their primary care provider this morning and mentioned patient has increased shortness of breath, their PCP advised patient come into the ER for further evaluation. Patient endorses a history of congestive heart failure and takes a water pill. She also endorses a history of lymphedema, abnormal thyroid levels, diabetes, and neuropathy. Patient denies any chest pain, back pain, lower extremity pain, abdominal pain or lower extremity wounds. Labs Ordered: CBC, CMP, magnesium, TSH, PTT, INR, lactic acid, UA Imaging Ordered: CTA PE Medications Ordered: Lasix 40 mg IV, Augmentin PO Results: Pt's CT scan indicates Pulmonary arteries: No PE. Thoracic Aorta: No dissection or aneurysm. Heart/pericardium: Coronary artery calcification. RV/LV ratio: Normal. Lungs/Pleura: Small right and trace left pleural effusions. Mild interlobular septal thickening. Scattered foci subtle bilateral airspace disease. Tracheobronchial tree: Patent. Nodes: No enlarged nodes. Bones: No acute bony abnormality. Soft tissues: Unremarkable. Visualized upper abdomen: Hepatomegaly, with steatosis, and probable cirrhosis. Cholecystectomy. Right renal cyst. Pancreatic atrophy. Small hiatal hernia Diagnosis: CHF exacerbation, abdominal wound Consults: cardiology (outpatient) Patient Education/Shared MDM: Pt reports she has consistently low TSH levels and is followed by an dermatologist. Upon reexamination patient disclosed she has not been taking her Lasix at home recently. She was advised to resume taking her Lasix on a daily basis even though it makes her urinate more frequently. Results of lab work and imaging shared with patient. She endorses mild improvement of symptoms following medication administration. Her abdominal wounds continue to look mildly infected, so pt's antibiotic will be changed. Patient strongly advised to maintain hydration status upon discharge and follow-up with her PCP and cardiology as soon as possible for re-evaluation. She will be discharged home with a prescription for Augmentin and Mupirocin. Pt will also be discharged home with a prescription for a three-day course of increased Lasix (40mg total). Strict return precautions provided. Patient verbalized understanding and is in agreement with plan. Vital signs stable at time of discharge. All questions answered. Differential Diagnosis Differential diagnosis: Likely acute exacerbation of chronic obstructive airways disease, congestive heart failure, community acquired pneumonia and pulmonary embolism Lab Data Attestation: I reviewed the patient's lab results. 03/25/25 10:42 03/25/25 10:42 Labs: Lab Results 03/25/25 03/25/25 Range/Units 10:42 12:07 WBC 6.7 (4.5-10.0) K/mm3 RBC 4.42 (4.2-5.4) M/mm3 Hgb 12.8 (12.0-15.0) g/dL Hct 40.5 (37.0-47.0) % MCV 91.6 (80-100) fl MCH 29.0 (26-34) pg MCHC 31.6 L (32-36) g/dl RDW 13.9 (11.5-14.5) % Plt Count 235 (150-375) k/mm3 MPV 9.9 (7.4-10.4) fl Immature Gran % (Auto) 0.7 H (0-0.5) % Neut % (Auto) 61.2 (45.5-73.1) % Lymph % (Auto) 26.6 (18.3-44.2) % [place] % (Auto) 8.4 (2.6-8.5) % Eos % (Auto) 1.9 (0-4.4) % Baso % (Auto) 1.2 (0.2-1.2) % Lymph # (Auto) 1.78 (0.9-3.2) K/mm3 [place] # (Auto) 0.6 (0.1-0.6) K/mm3 Eos # (Auto) 0.1 (0-0.3) K/mm3 Baso # (Auto) 0.1 (0.0-0.1) K/mm3 Abs Immat Gran (auto) 0.05 H (0.00-0.031) K/mm3 Absolute Neuts (auto) 4.1 (1.3-6.7) K/mm3 Absolute Nucleated RBC 0.000 (0.0-0.012) K/mm3 Nucleated RBC % 0.0 (0.0-0.2) % PT 13.8 (11.1-14.7) Seconds INR 1.1 APTT 29.6 (22.3-36.8) Seconds D-Dimer 2.79 H (<0.48) ug/mL Sodium 138 (137-145) mmol/L Potassium 3.9 (3.4-5.0) mmol/L Chloride 105 (98-107) mmol/L Carbon Dioxide 30 (22-30) mmol/L Anion Gap 3 L (4-12) mmol/L BUN 17 (7-17) mg/dL Creatinine 0.84 (0.7-1.0) mg/dL Estim Creat Clear Calc 52 ml/min Estimated GFR > 60 (59 - ) Glucose 133 H (65-110) mg/dL Lactic Acid 1.4 (0.7-2.0) mmol/L Calcium 9.2 (8.4-10.2) mg/dL Magnesium 2.0 (1.6-2.3) mg/dL Total Bilirubin 0.6 (0.2-1.3) mg/dL AST 29 (14-36) U/L ALT 17 (6-35) U/L Alkaline Phosphatase 82 (38-126) U/L NT-Pro-B Natriuret Pep 894 H (19.9-100) pg/mL Total Protein 7.8 (6.3-8.2) g/dL Albumin 3.8 (3.5-5.1) g/dL TSH (Reflex) < 0.015 L (0.465-4.68) uIU/mL Free T4 Pending Urine Color Yellow (Yellow) Urine Appearance Clear (Clear) Urine pH 6.0 (5.0-9.0) Ur Specific [place] 1.010 (1.001-1.035) Urine Protein Negative (Negative) mg/dL Urine Glucose (UA) Negative (Negative) mg/dL Urine Ketones Negative (Negative) mg/dL Ur Blood (Man) Negative (Negative) Urine Nitrate Negative (Negative) Urine Bilirubin Negative (Negative) Urine Urobilinogen 0.2 (<2.0) mg/dL Leukocyte Esterase Rfl Negative (Negative) EVELINE/UL Imaging Data Attestation: I personally reviewed and interpreted this imaging study as follows: Radiologist's impression: Impressions Chest X-Ray 03/25/25 10:59 Impression: 1: Cardiomegaly with pulmonary edema. Chest CTA 03/25/25 12:22 IMPRESSION: 1. No PE. 2. Small pleural effusions and minimal interstitial pulmonary edema. 3. Small bilateral additional foci of alveolar pulmonary edema and/or airspace disease. Discharge Plan Discharge Clinical Impression: Acute exacerbation of CHF (congestive heart failure), Wound, open, abdominal wall, anterior, History of thyroid disorder, Exertional shortness of breath, Diabetes mellitus Patient Disposition: Home Condition: Stable Instructions: Antibiotic Form, Heart Failure (ED), Wound Healing and Your Diet (ED) Additional Instructions: Please return to the ER with any worsening symptoms. Follow-up with primary care provider and water chaser as soon as possible for further evaluation. Take all medications as prescribed, including regularly scheduled medications. Please complete your full dose of antibiotics. Your Lasix dose will be increased for the next 3 days to 40 mg per day. Please remember to drink lots of water, as you will be urinating more. Continue Patient Language: Sinhala Prescriptions: New amoxicillin-pot clavulanate 875-125 mg tablet 1 tablet PO Q12H Qty: 20 0RF mupirocin 2 % ointment kit 1 applic topical TID Qty: 1 0RF furosemide [Lasix] 20 mg tablet 20 mg PO DAILY Qty: 3 0RF No Action insulin asp prt-insulin aspart [Novolog Mix 70-30 U-100 Insuln] 100 unit/mL (70-30) solution 44 unit SUB-Q TIDWMEAL Qty: 120 3RF levothyroxine 175 mcg tablet 175 mcg PO DAILY Qty: 90 1RF nystatin 100,000 unit/gram powder 1 applic topical BID Qty: 15 0RF Lumigan 0.01 % drops 1 drop EACH EYE QPM aspirin 81 mg tablet,chewable 81 mg PO DAILY Patient Comments: per patient home medication list provided 12/27/19 ([facility]) home compression pump See Rx Instructions .Route .MEDSUPPLY Qty: 1 0RF Rx Instructions: As directed daily (DME) lymphedema device See Rx Instructions .Route .MEDSUPPLY Qty: 1 0RF Rx Instructions: As directed daily tramadol 50 mg tablet 50 mg PO Q4-6H PRN (Reason: pain) Qty: 360 0RF diclofenac sodium 1 % gel See Rx Instructions .ROUTE .COMPLEX Qty: 900 5RF Dose Instruction: APPLY 4 GRAMS TOPICALLY FOUR TIMES A DAY Rx Instructions: APPLY 4 GRAMS TOPICALLY FOUR TIMES A DAY ([facility]) FreeStyle Karen 3 Alsen Misc See Rx Instructions .Route Qty: 1 0RF Rx Instructions: As directed daily ([facility]) FreeStyle Karen 3 Sensor Device See Rx Instructions .Route Qty: 2 12RF Rx Instructions: As directed QID cyanocobalamin (vitamin B-12) 1,000 mcg/mL solution 1,000 mcg IM WEEKLY Qty: 20 3RF (DME) syringe with needle, safety [Monoject Safety Syringes] 3 mL 22 gauge x 1 syringe See Rx Instructions .Route Qty: 100 3RF Rx Instructions: As directed weekly ([facility]) pen needle, diabetic [Sure Comfort Pen Needle] 31 gauge x 5/16 needle See Rx Instructions .Route Qty: 400 4RF Rx Instructions: inject QID as directed Trulicity 4.5 mg/0.5 mL pen injector 4.5 mg subcut WEEKLY Qty: 6 3RF furosemide 20 mg tablet 20 mg PO QAM Qty: 90 1RF pantoprazole 40 mg tablet,delayed release (DR/EC) 40 mg PO DAILY Qty: 90 3RF metoprolol succinate [Toprol XL] 100 mg tablet extended release 24 hr 100 mg PO DAILY Qty: 90 3RF ergocalciferol (vitamin D2) 1,250 mcg (50,000 unit) capsule 50,000 unit PO WEEKLY Qty: 12 3RF Rx Instructions: On Friday potassium chloride 10 mEq capsule, extended release 10 meq PO .M W F Qty: 38 3RF pregabalin [Lyrica] 75 mg capsule 75 mg PO .COMPLEX Qty: 270 1RF Rx Instructions: 75 mg orally; patient states she takes 1 pill in the AM, and 2 pills in the PM triamcinolone acetonide 0.1 % cream 1 applic topical BID Qty: 453.6 0RF hydrocodone-acetaminophen 5-325 mg tablet 1 tablet PO Q4H PRN (Reason: pain) Qty: 60 0RF Follow-up/Referrals: Sary Cerda PA-C [Primary Care Provider, Family Practice] Avel Wang MD [Physician, Cardiology] Time of Disposition: 14:36
--- OUTSIDE RECORDS SUMMARY | 2025-03-25 10:03 | XMS_ITS | Clinical Summary ---
Author Organization [facility] Address [address] [place] [address] Care Team Providers Care Advertising Material Distributor Name Role Phone Jocy Moon MD Primary Care Provider [phone] Source Comments [facility],non-owned Affiliates and Associated Physician Practices is amultiple site organization consisting of ambulatory clinics and hospital sitesin [place], [place], [place] and [place]. This disclosure is being madepursuant to the Care Everywhere program and may not contain all information available regarding this patient. Last updated 18.[facility] Allergies Active Allergy Reactions Criticality Noted Date [...] 08/18/19 19 Active vitamin D, ergocalciferol, (DRISDOL) 37091 units capsule Take 50,000 Units by mouth [...] 3 03/04/20 22 Active Sure Comfort Pen [place] 31G X 8 MM needleIndications: Neuropathy due [...] Plan (09/26/2020 2:10 PM CDT): - R alevism x3 - Given symptoms, we treated 3 [...] on file Legal Sex Female 5:19 PM DRILLING FIELD SPECIALIST Gender Identity Not on file Sexual Orientation Not on file Last Filed Vital Signs Vital Sign Reading Time Taken Comments Blood Pressure 144/82 06/05/2021 11:25 AM DRILLING FIELD SPECIALIST Pulse 58 06/05/2021 11:25 AM DRILLING FIELD SPECIALIST Temperature 36.6 C (97.8 F) 06/05/2021 11:25 AM DRILLING FIELD SPECIALIST Respiratory Rate 12 02/12/2017 1:34 PM CDT Oxygen Saturation 96% 06/05/2021 11:25 AM DRILLING FIELD SPECIALIST Inhaled Oxygen Concentration - - Weight 121.1 kg (267 lb) 06/05/2021 11:25 AM DRILLING FIELD SPECIALIST Height 152.4 cm (5') 06/05/2021 11:25 AM DRILLING FIELD SPECIALIST Body Mass Index 52.14 06/05/2021 11:25 AM DRILLING FIELD SPECIALIST Plan of Treatment Health Maintenance Due Date [...] to Health Maintenance Insurance MEDICARE Care Teams Advertising Material Distributor Relationship Specialty Start Date End Date Jocy Moon MD [address] [place] [address] PCP - General 03/02/08
--- OUTSIDE RECORDS SUMMARY | 2025-03-25 10:03 | XMS_ITS | Clinical Summary ---
Author Organization [facility] [address] Address [address] [place] [address] Care Team Providers Care Real Estate Specialist Name Role Phone Jocy Moon MD Primary Care Provider [phone] Tacho White MD Unavailable [phone] Allergies Active Allergy Reactions Criticality Noted Date [...] Will update labs. Verified that she uses [employer]. Aware to check results/results letter in [employer]. Will contact by phone if needed. Assessment [...] daily Assessment & Plan (03/25/2022 10:40 AM LODGING FACILITIES MANAGER): Pt currently on Levoxyl 200 mcg oral [...] patient Last Assessment & Plan: - R spiritism x3 - Given symptoms, we treated 3 [...] (01/22/24 mild NPDR OD, mod NPDR OS [facility]) Will update labs. Verified that she uses [facility]. Aware to check results/results letter in [employer]. Will contact by phone if needed. Discussed [...] copy daily foot care Keep following with [facility] karen to 3 version - sent in script Follow Up in 6 months Assessment & Plan (03/25/2022 10:40 AM LODGING FACILITIES MANAGER): Chronic, Overall fair controlled for pt age [...] exercise Assessment & Plan (03/25/2022 10:40 AM LODGING FACILITIES MANAGER): counseled on diet and exercise Encounters Date Type Department Care Team Description 2025 Orders Only [facility] [address] [phone] ProviderAriana MD 02/11/2025 Telephone [facility] Diabetes and Endocrinology [address] [place] [phone] Truong Gardner MD request to patient for yearly eye exam 01/17/2025 Telephone [facility] [address] [phone] Truong Gardner MD Total medical supply 01/08/2025 Results Follow-Up [facility] Diabetes and Endocrinology [address] [place] [phone] Rachel Pa NP TSH, T4, free 01/07/2025 12:10 PM CDT Lab [address] [address] Acquired hypothyroidism; Type 2 diabetes mellitus with diabetic polyneuropathy, with long-term current use of insulin (HCC) 01/07/2025 11:00 AM CDT Office Visit [facility] Diabetes and Endocrinology [address] [place] [phone] Rachel Pa, CORRESPONDENCE COORDINATOR Type 2 diabetes mellitus with diabetic polyneuropathy, [...] on file Legal Sex Female 3:41 PM LODGING FACILITIES MANAGER Gender Identity Female 08/01/2023 7:51 AM CDT [...] CREATININE RATIO, URINE Routine 03/25/2022 10:44 AM LODGING FACILITIES MANAGER Type 2 diabetes mellitus with diabetic polyneuropathy, with long-term current use of insulin (HCC) from Last 3 Months or Most Recently Relevant to Health Maintenance Results * TSH (01/07/2025 12:26 PM CDT) Pathologist [facility] Thyroid Stimulating Hormone 0.32 0.30 - 4.20 mcIUnit/mL Blood 01/07/2025 12:2 6 PM CDT 01/07/2025 2:34 PM CDT us Rachel Pa NP LAB BLOOD ORDERABLES Meme brown Result [facility] [address] [facility] Department [place] [address] * (ABNORMAL) T4, free (01/07/2025 12:26 PM CDT) Free T4 1.99(H) 0.90 - 1.70 ng/dL Blood 01/07/2025 12:2 6 PM CDT 01/07/2025 2:34 PM CDT us Rachel Pa CORRESPONDENCE COORDINATOR LAB BLOOD ORDERABLES Meme l Result [facility] [place] [address] * (ABNORMAL) POCT hemoglobin A1c (01/07/2025 11:07 AM CDT) [facility] Hemoglobin A1C, POC 8.3(A) 4.0 - 5.6 % Blood 01/07/2025 11:0 7 AM CDT us Rachel Pa CORRESPONDENCE COORDINATOR POINT OF CARE TEST ORDERA BLES Final Result * POCT glucose (01/07/2025 10:55 AM CDT) [facility] Glucose Blood, POC 140 Normal Fasting 70 - 100, Random <200 mg/dL Blood 01/07/2025 10:5 5 AM CDT us Rachel Pa CORRESPONDENCE COORDINATOR POINT OF CARE TEST ORDERA BLES Final Result * (ABNORMAL) DIABETES EYE EXAM (12/17/2024) 12/17/2024 us Historical Provider HEALTH MAINTENANCE Edited Result - Final * eGFR (07/12/2024 2:39 PM CDT) [facility] eGFR 60 >=60 mL/min/1. 73 m2 Comment: [...] BLOOD ORDERABLE S Final Result [facility] [address] Department [place] [address] * Lipid panel (07/12/2024 2:39 PM CDT) [...] last revised on 2017. Chol/HDL ratio 3 [facility] Blood 07/12/2024 2:39 PM CDT 07/12/2024 8:54 PM CDT Truong Villeda MD LAB BLOOD ORDERABLE S Final Result Performing Organization Address [facility] Co de Phone Number [facility] [address] [address] Department [employer] [place] [address] * Albumin Creatinine Ratio, Urine (03/25/2022 10:44 AM LODGING FACILITIES MANAGER) Albumin Ur <12.0 mg/L [facility] Comment: Interpretive Data No reference range established. Current interpretive data was last revised 2018. Creatinine Ur 42.8 mg/dL [facility] Comment: Interpretive Data No reference range established. Current interpretive data was last revised 2018. Albumin Creatinine Ratio, Ur <28 1 - 29 mg/g [facility] Urine 03/25/2022 10:4 4 AM LODGING FACILITIES MANAGER 03/25/2022 3:51 PM LODGING FACILITIES MANAGER Truong Villeda MD LAB URINE ORDERABLE S Final Result Performing Organization Address [facility] Co de Phone Number [facility] [address] [place] [address] from Last 3 Months or Most Recently Relevant to Health Maintenance Insurance MEDICARE FOR LIFE MEDICARE FOR LIFE Care Teams Real Estate Specialist Relationship Specialty Start Date End Date Jocy Moon MD PCP - General 02/12/07 Tacho White MD [address] [place] [address] Referring Physician Ophthalmology 01/13/25
--- NOTE | 2025-03-25 10:07 | ECG_ITS ---
Test Date: 2025-03-25 10:19:26 Measurements Intervals Chama Rate: 64 P: 32 NJ: 168 QRS: 0 QRSD: 86 T: 33 QT: 341 QTc: 354 Interpretive Statements SINUS RHYTHM WITH OCCASIONAL VENTRICULAR PREMATURE COMPLEXES WITH OCCASIONAL SUPRAVENTRICULAR PREMATURE COMPLEXES LOW QRS VOLTAGE IN PRECORDIAL LEADS [QRS DEFLECTION < 1.0 mV IN CHEST LEADS] POOR R-WAVE PROGRESSION ABNORMAL ECG No previous ECG available for comparison Electronically Signed On 03-25-2025 13:24:10 ABORIGINAL EDUCATION TEACHER by Avel Wang M.D.
--- NOTE | 2025-03-25 10:20 | PC.NURSE ---
vascular access contacted at this time
[2025-03-25 10:50] LABS: Hematocrit 40.5 % (37.0-47.0); Hemoglobin 12.8 g/dL (12.0-15.0); Immature Granulocyte Percent A 0.7 % (0-0.5); Lymphocytes Absolute Auto 1.78 K/mm3 (0.9-3.2); Mean Corpuscular HGB Conc 31.6 g/dl (32-36); Mean Corpuscular Hemoglobin 29.0 pg (26-34); Mean Corpuscular Volume 91.6 fl (80-100); Nucleated Red Blood Cells Absolute Auto 0.000 K/mm3 (0.0-0.012); Nucleated Red Blood Cells Perc 0.0 % (0.0-0.2); Platelet Count Result 235 k/mm3 (150-375); Red Blood Count 4.42 M/mm3 (4.2-5.4); White Blood Count 6.7 K/mm3 (4.5-10.0)
[2025-03-25 11:02] LABS: INR 1.1; Prothrombin Time 13.8 Seconds (11.1-14.7)
[2025-03-25 11:03] LABS: Partial Thromboplastin Time 29.6 Seconds (22.3-36.8)
[2025-03-25 11:10] LABS: Alanine Aminotransferase 17 U/L (6-35); Albumin Level 3.8 g/dL (3.5-5.1); Alkaline Phosphatase 82 U/L (38-126); Anion Gap 3 mmol/L (4-12); Aspartate Amino Transferase 29 U/L (14-36); Bilirubin,Total 0.6 mg/dL (0.2-1.3); Blood Urea Nitrogen 17 mg/dL (7-17); Calcium 9.2 mg/dL (8.4-10.2); Carbon Dioxide 30 mmol/L (22-30); Chloride 105 mmol/L (98-107); Estimated CRCL calculation 52 ml/min; Estimated Glomerular Filt Rate > 60; Glucose 133 mg/dL (65-110); Magnesium 2.0 mg/dL (1.6-2.3); Potassium 3.9 mmol/L (3.4-5.0); Sodium 138 mmol/L (137-145); Total Protein 7.8 g/dL (6.3-8.2)
[2025-03-25 11:18] LABS: NT Pro B Type Natriuretic Pept 894 pg/mL (19.9-100)
[2025-03-25] MEDS: FUROSEMIDE INJ 40 MG/4 ML VIAL IV PUSH (11:20)
[2025-03-25 11:39] LABS: Thyroid Stimulating Hormone Reflex < 0.015 uIU/mL (0.465-4.68)
[2025-03-25 12:12] LABS: Add Urine Microscopic? NO; Appearance Urine Clear (Clear); Glucose Urine UA Negative (Negative); Leukocyte Esterase Ur Negative LEU/UL (Negative); Nitrate Urine Negative (Negative); Specific Grav Ur 1.010 (1.001-1.035)
[2025-03-25 12:45] VITALS: PULSE 74; RESP 18; O2SAT 99
[2025-03-25 14:47] LABS: Free T4 Free Thyroxine Reflex 2.00 ng/dL (0.78-2.19)
[2025-03-25 15:45] LABS: Total Triiodothyronine (T3) 0.88 NG/ML (0.82-1.58)
== END 2025-03-25 14:47 | disposition home or self-care (01) ==
PROVIDERS: Emergency Provider Registered Nurse; PCP Student in an Organized Health Care Education/Training Program
DX: I50.9 Heart failure, unspecified (principal); L98.439 Non-pressure chronic ulcer of abdomen with unspecified severity; E11.40 Type 2 diabetes mellitus with diabetic neuropathy, unspecified; E03.9 Hypothyroidism, unspecified; I11.0 Hypertensive heart disease with heart failure; I89.0 Lymphedema, not elsewhere classified; E55.9 Vitamin D deficiency, unspecified; E53.8 Deficiency of other specified B group vitamins; G47.33 Obstructive sleep apnea (adult) (pediatric); M19.90 Unspecified osteoarthritis, unspecified site; Z85.9 Personal history of malignant neoplasm, unspecified; Z90.710 Acquired absence of both cervix and uterus; Z90.49 Acquired absence of other specified parts of digestive tract; Z98.49 Cataract extraction status, unspecified eye; I49.3 Ventricular premature depolarization; I49.1 Atrial premature depolarization; I51.7 Cardiomegaly; Z79.4 Long term (current) use of insulin; Z79.899 Other long term (current) drug therapy; Z79.82 Long term (current) use of aspirin; Z79.85 Long-term (current) use of injectable non-insulin antidiabetic drugs
CPT/HCPCS: 36415; 71046; 71275; 80053; 81003; 83605; 83735; 83880; 84439; 84443; 84480; 85025; 85380; 85610; 85730; 93005; 96374; 99284; A9270; J1938; Q9967